=== PATIENT | male | born 1965 | race Caucasian/White ===

== ENCOUNTER 2016-07-30 16:23 | Emergency (ER) | payer BC ==
[2016-07-30 16:55] VITALS: BP 117/80
--- NOTE | 2016-08-06 21:24 | UC ---
Throat Pain/Nasal Jose HPI - HPI Summary HPI Summary: 4-5 days of worsening right side facial pain check and behind eye - History of Current Complaint Chief Complaint: UC Stated Complaint: SINUS ISSUE Hx Obtained From: Patient Onset/Duration: Gradual Onset, Still Present, Worse Since - 4-5 days Severity: Mild Pain Intensity: 2 Pain Scale Used: 0-10 Numeric Cough: None Associated Signs & Symptoms: Positive: Sinus Discomfort, Nasal Discharge - Allergies/Home Medications Allergies/Adverse Reactions: Allergies Allergy/AdvReac Type Severity Reaction Status Date / Time No Known Allergies Allergy Verified 05/09/16 15:39 PMH/Surg Hx/FS Hx/Imm Hx Previously Healthy: No Endocrine History Of: Denies: Diabetes, Thyroid Disease Cardiovascular History Of: Reports: Hypertension Denies: Cardiac Disorders Respiratory History Of: Reports: Asthma - exercise induced asthma Denies: COPD GI/ History Of: Denies: Ulcer - Surgical History Surgical History: Yes Surgery Procedure, Year, and Place: nasal polyps -2012 - Family History Known Family History: Positive: None Negative: Hypertension, Diabetes - Social History Occupation: Employed Full-time Lives: With Family Alcohol Use: Rare Substance Use Type: None Smoking Status (MU): Former Smoker - Immunization History Most Recent Influenza Vaccination: fall 2015 Review of Systems Constitutional: Negative Skin: Negative Eyes: Negative ENT: Negative Respiratory: Negative Cardiovascular: Negative Gastrointestinal: Negative Genitourinary: Negative Motor: Negative Neurovascular: Negative Musculoskeletal: Negative Neurological: Headache - right side of face Psychological: Negative All Other Systems Reviewed And Are Negative: Yes Physical Exam Triage Information Reviewed: Yes Appearance: Well-Appearing, No Pain Distress, Well-Nourished Vital Signs: Initial Vital Signs Temp 98.4 F 07/30/16 16:48 Pulse 70 07/30/16 16:48 Resp 16 07/30/16 16:48 BP 117/80 07/30/16 16:48 Pulse Ox 97 07/30/16 16:48 Vital Signs Reviewed: Yes Eye Exam: Normal Eyes: Positive: Conjunctiva Clear ENT Exam: Normal ENT: Positive: Normal ENT inspection, Hearing grossly normal, Pharynx normal, Nasal congestion, Nasal drainage. Negative: TMs normal, Tonsillar swelling, Tonsillar exudate, Trismus, Muffled/hoarse voice Dental Exam: Normal Neck exam: Normal Neck: Positive: Supple, Nontender, No Lymphadenopathy Respiratory Exam: Normal Respiratory: Positive: Chest non-tender, Lungs clear, Normal breath sounds, No respiratory distress, No accessory muscle use Cardiovascular Exam: Normal Cardiovascular: Positive: RRR, No Murmur, Pulses Normal, Brisk Capillary Refill Musculoskeletal Exam: Normal Musculoskeletal: Positive: Strength Intact, ROM Intact, No Edema Neurological Exam: Normal Neurological: Positive: Alert, Muscle Tone Normal Psychological Exam: Normal Skin Exam: Normal Throat Pain/Nasal Course/Dx - Course Assessment/Plan: augmentin, flonase, otc meds for sinus pain follow with pcp - Differential Dx/Diagnosis Differential Diagnosis/HQI/PQRI: Laryngitis, Pharyngitis, Sinusitis, URI Provider Diagnoses: Sinusitis Discharge - Discharge Plan Condition: Stable Disposition: HOME Prescriptions: Amoxicillin/Clavulanate TAB* [Augmentin TAB 875*] 875 mg PO BID #20 tab Patient Education Materials: Sinusitis (ED) Referrals: Jozef Tyler MD [Primary Care Provider] - If Needed
== END 2016-07-30 18:12 | disposition home or self-care (01) ==
LOC: UCEAST 16:23
DX: J32.9 Chronic sinusitis, unspecified (principal); Z87.891 Personal history of nicotine dependence
CPT/HCPCS: 99211; G0463

== ENCOUNTER 2016-08-31 09:43 | Emergency (ER) | payer BC ==
[2016-08-31] MEDS ORDERED: oxyCODONE/Acetamin 5/325 MG* TAB PO ONE (10:21)
--- NOTE | 2016-08-31 10:56 | RAD ---
HISTORY: Right anterior and medial knee pain COMPARISONS: None VIEWS: 2, Frontal and lateral views of the right knee FINDINGS: BONE DENSITY: Normal. BONES: There is no displaced fracture. JOINTS: There is mild patellofemoral osteoarthritis. There is no suprapatellar joint effusion or lipohemarthrosis. ALIGNMENT: There is no dislocation. SOFT TISSUES: Unremarkable. OTHER FINDINGS: None. IMPRESSION: NO ACUTE OSSEOUS INJURY. IF SYMPTOMS PERSIST, RECOMMEND REPEAT IMAGING.
[2016-08-31 12:01] VITALS: BP 132/78
--- NOTE | 2016-08-31 17:14 | ED ---
Lower Extremity - HPI Summary HPI Summary: Patient arrives to ED with CC of right knee feeling as if it was "dislocating" last evening and returning to place and now experiencing medial knee pain. Patient is able to bear weight. He states he has been taking the stairs more frequently and working out more. This has never happened before. While he didn 't see it happen, he felt it go out of place. Knee is intact now without laxity but medial knee pain is present on palpation and while bearing weight. - History of Current Complaint Chief Complaint: EDExtremityLower Stated Complaint: RT KNEE PAIN Time Seen by Provider: 08/31/16 10:07 Hx Obtained From: Patient Mechanism Of Injury: Unknown Onset of Pain: Immediate Onset/Duration: Minutes Severity Initially: Moderate Severity Currently: Moderate Pain Intensity: 2 Pain Scale Used: 0-10 Numeric Timing: Constant Location: Is Discrete @ - medial left knee Associated Signs And Symptoms: Positive: Negative Aggravating Factor(s): Standing, Ambulation, Movement, Weight Bearing, Stairs Alleviating Factor(s): Rest Able to Bear Weight: Yes - but painful to do so - Risk Factors Gout Risk Factors: Age Over 40, Male DVT Risk Factors: Negative Septic Arthritis Risk Factor: Negative - Allergies/Home Medications Allergies/Adverse Reactions: Allergies Allergy/AdvReac Type Severity Reaction Status Date / Time No Known Allergies Allergy Verified 05/09/16 15:39 PMH/Surg Hx/FS Hx/Imm Hx Previously Healthy: Yes Endocrine/Hematology History: Denies: Hx Diabetes, Hx Thyroid Disease Cardiovascular History: Reports: Hx Hypertension Respiratory History: Reports: Hx Asthma - exercise induced asthma Denies: Hx Chronic Obstructive Pulmonary Disease (COPD) GI History: Denies: Hx Ulcer - Surgical History Surgery Procedure, Year, and Place: nasal polyps -2013 Infectious Disease History: No Infectious Disease History: Denies: Hx Hepatitis, Hx Human Immunodeficiency Virus (HIV), Traveled Outside the [place] in Last 30 Days - Family History Known Family History: Positive: None Negative: Hypertension, Diabetes - Social History Occupation: Employed Full-time Lives: With Family Alcohol Use: Rare Hx Substance Use: No Substance Use Type: Reports: None Hx Tobacco Use: Yes Smoking Status (MU): Former Smoker Review of Systems Constitutional: Negative Eyes: Negative Cardiovascular: Negative Respiratory: Negative Positive: Arthralgia, Myalgia - medial left knee pain Skin: Negative Neurological: Negative Psychological: Normal All Other Systems Reviewed And Are Negative: Yes Physical Exam Triage Information Reviewed: Yes Vital Signs On Initial Exam: Initial Vitals Temp Pulse Resp BP Pulse Ox 97.5 F 62 18 136/83 100 08/31/16 09:52 08/31/16 09:52 08/31/16 09:52 08/31/16 09:52 08/31/16 09:52 Vital Signs Reviewed: Yes Appearance: Positive: Well-Appearing, Well-Nourished Skin: Positive: Warm, Skin Color Reflects Adequate Perfusion Head/Face: Positive: Normal Head/Face Inspection Neck: Positive: Supple, No Lymphadenopathy Respiratory/Lung Sounds: Positive: Clear to Auscultation, Breath Sounds Present Cardiovascular: Positive: Normal, RRR Abdomen Description: Positive: Nontender Musculoskeletal: Positive: Limited @ - flexion and extension of knee d/t pain, Pain @ - medial left knee and anterior knee over patella without discolorations. Neurological: Positive: Normal, Sensory/Motor Intact, Alert, Oriented to Person Place, Time, Speech Normal Psychiatric: Positive: Normal AVPU Assessment: Alert Diagnostics - Vital Signs Vital Signs Temp Pulse Resp BP Pulse Ox 08/31/16 11:45 72 16 132/78 08/31/16 09:52 97.5 F 62 18 136/83 100 - Laboratory Lab Statement: Any lab studies that have been ordered have been reviewed, and results considered in the medical decision making process. Lower Extremity Course/Dx - Course Course Of Treatment: Knee xray negative for acute fracture or dislocation. Patient encouraged to follow up with Dr. Fox next week. Knee immobilizer offered, but patient declined and requested adjustable knee brace from rx. Provider agreed. Ibuprofen encouraged for pain relief. Patient comfortable with crutches and is using appropriately. OK to discharge with follow up. Information given about pes anserine tendonitis/bursitis as well as disclocation. - Diagnoses Differential Diagnosis/HQI/PQRI: Positive: Bursitis, Dislocation, Sprain, Strain , Tendonitis Provider Diagnoses: Medial knee pain Discharge - Discharge Plan Condition: Stable Disposition: HOME Prescriptions: Elastic Bandages & Supports [Knee Brace/Hinged l/Xl] 1 mis XX DAILY #1 mis Patient Education Materials: Knee Dislocation (GEN), Knee Immobilizer (ED) Referrals: Deni Fox MD [Medical Doctor] - Jozef Tyler MD [Primary Care Provider] - Additional Instructions: Follow up with Dr. Fox. No acute fracture was seen. Ibuprofen 600mg three times daily as needed for pain and inflammation.
== END 2016-08-31 11:45 | disposition home or self-care (01) ==
LOC: ED 09:43
DX: M25.562 Pain in left knee (principal)
CPT/HCPCS: 99282; A9270-GY

== ENCOUNTER 2016-12-18 15:41 | Emergency (ER) | payer BC ==
[2016-12-18 16:34] VITALS: BP 135/94
--- NOTE | 2016-12-18 16:58 | UC ---
Asthma HPI - History of Current Complaint Chief Complaint: UCRespiratory Stated Complaint: ? 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 Associated Signs and Symptoms: Positive: Chest Pain - with coughing, URI, Shortness of Breath - Risk Factors Status Asthmaticus Risk Factors: Negative - Allergy/Home Medications Allergies/Adverse Reactions: Allergies Allergy/AdvReac Type Severity Reaction Status Date / Time No Known Allergies Allergy Verified 12/18/16 16:34 PMH/Surg Hx/FS Hx/Imm Hx Cardiovascular History: Hypertension Respiratory History: Asthma - Surgical History Surgical History: Yes Surgery Procedure, Year, and Place: nasal polyps -2012 - Family History Known Family History: Negative: Cardiac Disease, Hypertension, Diabetes - Social History Occupation: Employed Full-time Lives: With Family Alcohol Use: Rare Substance Use Type: None Smoking Status (MU): Former Smoker - Immunization History Most Recent Influenza Vaccination: fall 2015 Review of Systems Constitutional: Other - sweats ENT: Sore Throat, Ear Ache, Nasal Discharge, Sinus Pain/Tenderness Respiratory: Shortness Of Breath, Cough All Other Systems Reviewed And Are Negative: Yes Physical Exam Triage Information Reviewed: Yes Appearance: No Pain Distress, Well-Nourished, Ill-Appearing Vital Signs: Initial Vital Signs Temp 98.5 F 12/18/16 16:32 Pulse 73 12/18/16 16:32 Resp 14 12/18/16 16:32 BP 135/94 12/18/16 16:32 Pulse Ox 96 12/18/16 16:32 Vital Signs Reviewed: Yes Eyes: Positive: Conjunctiva Clear ENT: Positive: Pharynx normal, Nasal congestion, TMs normal Neck exam: Normal Respiratory: Positive: Wheezing - expiratory wheezing with coughing. Cardiovascular Exam: Normal Musculoskeletal Exam: Normal Neurological Exam: Normal Psychological Exam: Normal Skin Exam: Normal Asthma Course/Dx - Differential Dx/Diagnosis Differential Diagnosis/HQI/PQRI: Acute Asthma, Pneumonia, Reactive Airway Disease Provider Diagnoses: Acute URI. Acute bronchospasm. Acute sinusitis Discharge - Discharge Plan Condition: Stable Disposition: HOME Prescriptions: Albuterol HFA INHALER* [Ventolin HFA Inhaler*] 2 puff INH Q4H PRN #18 gm PRN Reason: Shortness Of Breath Amoxicillin (*) [Amoxicillin 875 MG (*)] 875 mg PO BID #20 tab predniSONE TAB* [Deltasone TAB*] 20 mg PO DAILY #18 tab Patient Education Materials: Upper Respiratory Infection (ED), Bronchospasm (ED ), Prednisone (By mouth), Sinusitis (ED), Amoxicillin (By mouth) Additional Instructions: NASAL SPRAYS AND DROPS: Afrin in the PUMP/ MIST bottle. Tilt your head down and look at the floor while doing a strong sniff with the spray. Decongestant nasal sprays and drops often give dramatic relief from congestion. They are often recommended for patients with sinus infection to assist with sinus drainage. Persons with high blood pressure should consult the doctor before using these nasal sprays. Afrin and Prasad-Synephrine are common [id number] preparations. They should not be used for more than five days, as "rebound" congestion can occur - - the congestion flares as the drug wears off. A way of dealing with this rebound congestion problem is to medicate only one nostril each time, allowing the other nostril to recover from the medicine' s effects. When you no longer need the drug during the day, spray only one nostril each night. This helps you sleep well without severe rebound congestion. Call the doctor if you develop severe headache, palpitations, or chest pain.
[2016-12-18] MEDS ORDERED: predniSONE TAB* 20 MG PO ONE (17:07)
== END 2016-12-18 17:15 | disposition home or self-care (01) ==
LOC: UCCORT 15:41
DX: J06.9 Acute upper respiratory infection, unspecified (principal); J98.01 Acute bronchospasm; J01.90 Acute sinusitis, unspecified; I10 Essential (primary) hypertension; J45.909 Unspecified asthma, uncomplicated; Z87.891 Personal history of nicotine dependence
CPT/HCPCS: 99212; G0463; J7512

== ENCOUNTER 2017-02-25 15:36 | Emergency (ER) | payer BC, OTHER ==
[2017-02-25 18:07] VITALS: BP 110/97
[2017-02-25] MEDS ORDERED: Tetan/Diph/Pertus SYR(Tdap)* 0.5 ML SYR(BOOSTRIX) use SYR IM ONE (19:01)
[2017-02-25] MEDS ORDERED: Ibuprofen TAB* 600 MG PO ONE (19:01)
--- NOTE | 2017-02-25 21:52 | ED ---
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 Minimal blood loss. Nail still intact at base. Notes to pain only on palpation which is at a 5/10. Denies radiation of pain. Denies numbness, tingling, temperature or color changes to the area. Tetanus is not UTD. - History of Current Complaint Chief Complaint: EDExtremityUpper Time Seen by Provider: 02/25/17 18:07 Stated Complaint: RT HAND FINGER LAC Hx Obtained From: Patient Onset/Duration: Started Minutes Ago Skin Exposure Onset/Duration: Minutes Ago Timing: Constant Onset Severity: Mild Current Severity: Mild Pain Intensity: 4 Pain Scale Used: 0-10 Numeric Skin Location: Hand Character: Pain Aggravating Symptom(s): Touch Alleviating Symptom(s): Nothing Associated Signs & Symptoms: Negative Related History: Trauma - Allergy/Home Medications Allergies/Adverse Reactions: Allergies Allergy/AdvReac Type Severity Reaction Status Date / Time No Known Allergies Allergy Verified 12/18/16 16:34 PMH/Surg Hx/FS Hx/Imm Hx Previously Healthy: Yes Endocrine/Hematology History: Denies: Hx Diabetes, Hx Thyroid Disease Cardiovascular History: Reports: Hx Hypertension - ON MED Denies: Hx Pacemaker/ICD Respiratory History: Reports: Hx Asthma - exercise induced asthma Denies: Hx Chronic Obstructive Pulmonary Disease (COPD) GI History: Denies: Hx Ulcer History: Denies: Hx Renal Disease Sensory History: Denies: Hx Hearing Aid Psychiatric History: Denies: Hx Panic Disorder - Surgical History Surgery Procedure, Year, and Place: nasal polyps -2013 - Immunization History Hx Pertussis Vaccination: No Immunizations Up to Date: Unable to Obtain/Confirm Infectious Disease History: No Infectious Disease History: Denies: Hx Hepatitis, Hx Human Immunodeficiency Virus (HIV), Traveled Outside the [place] in Last 30 Days - Family History Known Family History: Positive: None Negative: Cardiac Disease, Hypertension, Diabetes - Social History Occupation: Employed Full-time Lives: With Family Alcohol Use: Rare Hx Substance Use: No Substance Use Type: Reports: None Hx Tobacco Use: Yes Smoking Status (MU): Former Smoker Review of Systems Constitutional: Negative Negative: Fever, Chills, Fatigue ENT: Negative Cardiovascular: Negative Genitourinary: Negative Positive: no symptoms reported, see HPI Positive: Arthralgia Positive: Other - avulsion of the nail Neurological: Negative All Other Systems Reviewed And Are Negative: Yes Physical Exam Triage Information Reviewed: Yes Vital Signs On Initial Exam: Initial Vitals Temp Pulse Resp BP Pulse Ox 98.1 F 66 16 126/84 98 02/25/17 15:49 02/25/17 15:49 02/25/17 15:49 02/25/17 15:49 02/25/17 15:49 Vital Signs Reviewed: Yes Appearance: Positive: Well-Appearing, Well-Nourished Skin: Positive: Warm, Skin Color Reflects Adequate Perfusion, Other - avulsion of the nail of the middle finger of the right hand Head/Face: Positive: Normal Head/Face Inspection Eyes: Positive: EOMI, PATRICIA, Conjunctiva Clear Neck: Positive: Supple, No Lymphadenopathy Respiratory/Lung Sounds: Positive: Clear to Auscultation, Breath Sounds Present Cardiovascular: Positive: Normal, RRR, Pulses are Symmetrical in both Upper and Lower Extremities Musculoskeletal: Positive: Normal, Strength/ROM Intact Neurological: Positive: Speech Normal Psychiatric: Positive: Normal Diagnostics - Vital Signs Vital Signs Temp Pulse Resp BP Pulse Ox 02/25/17 18:05 98.0 F 66 19 110/97 98 02/25/17 15:49 98.1 F 66 16 126/84 98 - Laboratory Lab Statement: Any lab studies that have been ordered have been reviewed, and results considered in the medical decision making process. Course/Dx - Course Course Of Treatment: avulsion of the nail of the middle finger of the right hand. NV exam intact. Cleansed with wound on arriva. Minimal blood loss. Occlusive dressing applied. Gauze wrapped. Patient is to re-gauze the avulsion with the remaining occlusive bismuth gauze daily for 3 days. Return precautions given. Patient is OK with discharge. - Differential Diagnoses - Skin Complaint Differential Diagnoses: Other - avulsion, laceration, abrasion - Diagnoses Provider Diagnoses: Avulsion of nail Discharge - Discharge Plan Condition: Stable Disposition: HOME Patient Education Materials: Nail Avulsion (ED) Referrals: Jozef Tyler MD [Primary Care Provider] - Additional Instructions: Ibuprofen 600mg three times daily Replace the bandage daily Continue with keeping it covered with the occlusive gauze and bandage for 3 days You may use a regular bandaid after 3 days. The nail will grow back within 3-6 months
== END 2017-02-25 19:31 | disposition home or self-care (01) ==
LOC: ED 15:36
DX: S61.302A Unspecified open wound of right middle finger with damage to nail, initial encounter (principal); W45.8XXA Other foreign body or object entering through skin, initial encounter; Y92.9 Unspecified place or not applicable; I10 Essential (primary) hypertension
CPT/HCPCS: 90715; 99281; A9270-GY

== ENCOUNTER 2017-05-10 23:48 | Emergency (ER) | payer BC ==
[2017-05-11] MEDS ORDERED: methylPREDNISolone 125 MG* 2 ML VIAL IV ONE (00:24)
[2017-05-11 01:29] LABS: Red Cell Distribution Width 13 % (10.5-15)
[2017-05-11 01:31] LABS: Hematocrit 40 % (42-52); Hemoglobin 13.9 g/dl (14.0-18.0); Mean Corpuscular HGB Conc 35 g/dl (31-36); Mean Corpuscular Hemoglobin 29 pg (27-31); Mean Corpuscular Volume 83 fL (80-94); Mean Platelet Volume 7 um3 (7.4-10.4); Red Blood Count 4.81 10^6/ul (4.0-5.4); White Blood Count 10.1 10^3/ul (3.5-10.8)
[2017-05-11 01:47] LABS: Albumin 3.9 g/dL (3.2-5.2); BUN/Creatinine Ratio 14.4 (8-20); Calcium 9.7 mg/dL (8.6-10.3); EGFR African American 89.8 (>60); EGFR Non-African American 69.8 (>60); Globulin 2.8 g/dL (2-4); Total Bilirubin 0.4 mg/dL (0.2-1.0); Total Protein 6.7 g/dL (6.4-8.9)
[2017-05-11 01:56] LABS: Comments Flag Yes
[2017-05-11 02:55] LABS: Potassium 3.6 mmol/L (3.5-5.0)
--- NOTE | 2017-05-11 03:43 | ED ---
Neftali Ta Gabriel, scribed for Ankit Finch on 05/11/17 at 0022 . Respiratory - HPI Summary HPI Summary: This patient is a 51 year old M presenting to [facility] accompanied by with a chief complaint of respiratory complaint since ANIMAL [employer]INER. Pt states he was eating chocolate when his throat became irritated causing him to cough, which triggered an asthma attack. He used 4 puffs of his albuterol inhaler which alleviated the symptoms. Currently the patient reports SOB, shaking, chills, general malaise, and lightheadedness. - History of Current Complaint Stated Complaint: POSS REACTION TO MEDS Time Seen by Provider: 05/11/17 00:07 Hx Obtained From: Patient Onset/Duration: Still Present Timing: Constant Associated Signs and Symptoms: SOB, Chills - Allergy/Home Medications Allergies/Adverse Reactions: Allergies Allergy/AdvReac Type Severity Reaction Status Date / Time No Known Allergies Allergy Verified 12/18/16 16:34 PMH/Surg Hx/FS Hx/Imm Hx Previously Healthy: No Endocrine/Hematology History: Denies: Hx Diabetes, Hx Thyroid Disease Cardiovascular History: Reports: Hx Hypertension - ON MED Denies: Hx Pacemaker/ICD Respiratory History: Reports: Hx Asthma - exercise induced asthma Denies: Hx Chronic Obstructive Pulmonary Disease (COPD) GI History: Denies: Hx Ulcer History: Denies: Hx Renal Disease Sensory History: Denies: Hx Hearing Aid Psychiatric History: Denies: Hx Panic Disorder - Surgical History Surgery Procedure, Year, and Place: nasal polyps -2013 Infectious Disease History: Denies: Hx Hepatitis, Hx Human Immunodeficiency Virus (HIV), Traveled Outside the [place] in Last 30 Days - Family History Known Family History: Negative: Cardiac Disease, Hypertension, Diabetes - Social History Alcohol Use: Rare Hx Substance Use: No Substance Use Type: Reports: None Hx Tobacco Use: Yes Smoking Status (MU): Former Smoker Review of Systems Constitutional: Other - general malaise, shaking Positive: Chills Positive: Shortness Of Breath, Other - asthma attack Neurological: Other - lightheadedness All Other Systems Reviewed And Are Negative: Yes Physical Exam - Summary Physical Exam Summary: Appearance: Well appearing, no pain distress Skin: warm, dry, reflects adequate perfusion Head/face: normal Eyes: EOMI, PATRICIA ENT: normal Neck: supple, non-tender Respiratory: CTA, breath sounds present Cardiovascular: RRR, pulses symmetrical Abdomen: non-tender, soft Bowel: present Musculoskeletal: normal, strength/ROM intact Neuro: normal, sensory motor intact, A&Ox3 Triage Information Reviewed: Yes Vital Signs On Initial Exam: Initial Vitals Temp Pulse Resp BP Pulse Ox 99.1 F 87 18 121/77 97 05/11/17 00:26 05/11/17 00:26 05/11/17 00:26 05/11/17 00:26 05/11/17 00:26 Vital Signs Reviewed: Yes Diagnostics - Vital Signs Vital Signs Temp Pulse Resp BP Pulse Ox 05/11/17 00:26 99.1 F 87 18 121/77 97 - Laboratory Lab Results: Lab Results 05/11/17 05/11/17 05/11/17 Range/Units 01:15 01:15 01:15 WBC 10.1 (3.5-10.8) 10^3/ul RBC 4.81 (4.0-5.4) 10^6/ul Hgb 13.9 L (14.0-18.0) g/dl Hct 40 L (42-52) % MCV 83 (80-94) fL MCH 29 (27-31) pg MCHC 35 (31-36) g/dl RDW 13 (10.5-15) % Plt Count 250 (150-450) 10^3/ul MPV 7 L (7.4-10.4) um3 Neut % (Auto) 57.8 (38-83) % Lymph % (Auto) 23.5 L (25-47) % Divide % (Auto) 11.1 H (1-9) % Eos % (Auto) 7.3 H (0-6) % Baso % (Auto) 0.3 (0-2) % Absolute Neuts (auto) 5.8 (1.5-7.7) 10^3/ul Absolute Lymphs (auto) 2.4 (1.0-4.8) 10^3/ul Absolute Monos (auto) 1.1 H (0-0.8) 10^3/ul Absolute Eos (auto) 0.7 H (0-0.6) 10^3/ul Absolute Basos (auto) 0 (0-0.2) 10^3/ul Absolute Nucleated RBC 0.01 10^3/ul Nucleated RBC % 0.1 INR (Anticoag Therapy) (0.89-1.11) APTT (26.0-36.3) seconds Sodium 138 (133-145) mmol/L Potassium 3.6 (3.5-5.0) mmol/L Chloride 106 (101-111) mmol/L Carbon Dioxide 24 (22-32) mmol/L Anion Gap 8 (2-11) mmol/L BUN 16 (6-24) mg/dL Creatinine 1.11 (0.67-1.17) mg/dL Est GFR ( Amer) 89.8 (>60) Est GFR (Non-Af Amer) 69.8 (>60) BUN/Creatinine Ratio 14.4 (8-20) Glucose 141 H (70-100) mg/dL Lactic Acid (0.5-2.0) mmol/L Calcium 9.7 (8.6-10.3) mg/dL Total Bilirubin 0.40 (0.2-1.0) mg/dL AST 25 (13-39) U/L ALT 27 (7-52) U/L Alkaline Phosphatase 78 (34-104) U/L Troponin I 0.00 (<0.04) ng/mL B-Natriuretic Peptide 11 ( - 100) pg/mL Total Protein 6.7 (6.4-8.9) g/dL Albumin 3.9 (3.2-5.2) g/dL Globulin 2.8 (2-4) g/dL Albumin/Globulin Ratio 1.4 (1-3) 05/11/17 05/11/17 Range/Units 01:15 01:15 WBC (3.5-10.8) 10^3/ul RBC (4.0-5.4) 10^6/ul Hgb (14.0-18.0) g/dl Hct (42-52) % MCV (80-94) fL MCH (27-31) pg MCHC (31-36) g/dl RDW (10.5-15) % Plt Count (150-450) 10^3/ul MPV (7.4-10.4) um3 Neut % (Auto) (38-83) % Lymph % (Auto) (25-47) % Divide % (Auto) (1-9) % Eos % (Auto) (0-6) % Baso % (Auto) (0-2) % Absolute Neuts (auto) (1.5-7.7) 10^3/ul Absolute Lymphs (auto) (1.0-4.8) 10^3/ul Absolute Monos (auto) (0-0.8) 10^3/ul Absolute Eos (auto) (0-0.6) 10^3/ul Absolute Basos (auto) (0-0.2) 10^3/ul Absolute Nucleated RBC 10^3/ul Nucleated RBC % INR (Anticoag Therapy) 0.93 (0.89-1.11) APTT 30.8 (26.0-36.3) seconds Sodium (133-145) mmol/L Potassium (3.5-5.0) mmol/L Chloride (101-111) mmol/L Carbon Dioxide (22-32) mmol/L Anion Gap (2-11) mmol/L BUN (6-24) mg/dL Creatinine (0.67-1.17) mg/dL Est GFR ( Amer) (>60) Est GFR (Non-Af Amer) (>60) BUN/Creatinine Ratio (8-20) Glucose (70-100) mg/dL Lactic Acid 2.0 (0.5-2.0) mmol/L Calcium (8.6-10.3) mg/dL Total Bilirubin (0.2-1.0) mg/dL AST (13-39) U/L ALT (7-52) U/L Alkaline Phosphatase (34-104) U/L Troponin I (<0.04) ng/mL B-Natriuretic Peptide ( - 100) pg/mL Total Protein (6.4-8.9) g/dL Albumin (3.2-5.2) g/dL Globulin (2-4) g/dL Albumin/Globulin Ratio (1-3) Result Diagrams: 05/11/17 01:15 05/11/17 01:15 Lab Statement: Any lab studies that have been ordered have been reviewed, and results considered in the medical decision making process. - CT CT Head CT Interpretation Completed By: Radiologist - No acute intracranial pathology and chronic sinusitis. ED physician has reviewed this radiology report and agrees. - EKG 1:14 Cardiac Rate: NL EKG Rhythm: Sinus Rhythm - NSR at 73 BPM EKG Interpretation: No acute changes Disposition - Course Assessment/Plan: This patient is a 51 year old M presenting to [facility] accompanied by with a chief complaint of respiratory complaint since ANIMAL TRAINER. CT head reveals, per radiologist, No acute intracranial pathology and chronic sinusitis. CXR reveals no evidence for acute disease. Blood was drawn with no significant abnormalities. In the ED course the patient was given methylprednisolone, which improved his symptoms. Patient will be discharged with prescription for methylprednisolone and follow up from Dr. Tyler in 3 days. pt has albuteral at home and no wheeze in er. Pt diagnoses is exacerbation of asthma and chronic sinusitis. The patient is agreeable with this plan. - Differential Dx - Cardiopulmonary Differential Diagnoses - Cardiopulmonary: Acute Dyspnea, Asthma, Sinusitis, Other - anxeity reaction - Diagnoses Provider Diagnoses: Asthma exacerbation, Sinusitis, chronic Discharge - Discharge Plan Condition: Stable Disposition: HOME Prescriptions: Methylprednisolone [Medrol Dosepak 4 MG*] 0 mg PO .SEE PRECIOUS INSTRUCTION #1 tab Patient Education Materials: Methylprednisolone (By mouth), Asthma (ED), Sinusitis (ED) Referrals: Jozef Tyler MD [Primary Care Provider] - 3 Days Additional Instructions: RETURN TO THE EMERGENCY DEPARTMENT FOR CHANGING OR WORSENING SYMPTOMS. The documentation as recorded by the Neftali mabry Gabriel accurately reflects the service I personally performed and the decisions made by Josette hall Emmanuel.
[2017-05-11 04:00] VITALS: BP 123/73
--- NOTE | 2017-05-11 07:59 | RAD ---
INDICATION: Shortness of breath COMPARISON: Most recent comparison chest x-ray February 26, 2016 TECHNIQUE: Single AP portable view of the chest was obtained. FINDINGS: Image quality is compromised due to the relative inferiority of a portable chest x-ray. The heart and mediastinum exhibit normal size and contour. The lungs are grossly clear. There is no evidence of a large pleural effusion. Visualized bones are normal for the patient's age. IMPRESSION: No radiographic evidence for acute cardiopulmonary abnormality on this portable chest x-ray.
--- NOTE | 2017-05-11 08:00 | RAD ---
INDICATION: Dizziness. COMPARISON: Comparison is made with a prior MRI of the brain from October 25, 2016. TECHNIQUE: Contiguous axial sections of the brain were obtained from the skull base to the vertex without contrast. FINDINGS: The ventricles, cisterns and sulci are within normal limits. No significant focal abnormality or mass effect is seen. There is no evidence for hemorrhage. There is moderate mucosal thickening within the visualized portion of the maxillary, ethmoid and frontal sinuses which is present on the prior study most consistent with chronic sinusitis. IMPRESSION: 1. NO EVIDENCE FOR GROSS ACUTE INFARCT, MASS EFFECT OR HEMORRHAGE. 2. FINDINGS SUGGESTIVE OF CHRONIC SINUSITIS.
== END 2017-05-11 04:20 | disposition home or self-care (01) ==
LOC: ED 23:48
DX: J45.901 Unspecified asthma with (acute) exacerbation (principal); J32.9 Chronic sinusitis, unspecified; R06.02 Shortness of breath
CPT/HCPCS: 36415; 70450; 71010; 80053; 83605; 83880; 84484; 85025; 85610; 85730; 93005; 96374; 99285; J2930

== ENCOUNTER 2017-10-29 20:11 | Emergency (ER) | payer BC ==
[2017-10-29 20:58] VITALS: BP 145/72
--- NOTE | 2017-10-29 21:28 | UC ---
Throat Pain/Nasal Jose HPI - HPI Summary HPI Summary: C/O sinus pain with congestion. Mild cough. No fevers sweats or chills. - History of Current Complaint Chief Complaint: UCRespiratory Stated Complaint: SINUS COMPLAINT Hx Obtained From: Patient Onset/Duration: Gradual Onset, Lasting Weeks - 1, Worse Since - today. Severity: Mild Pain Intensity: 2 Cough: Nonproductive Associated Signs & Symptoms: Positive: Sinus Discomfort, Nasal Discharge Related History: Seasonal Allergies, Prior ENT Surgery - Allergies/Home Medications Allergies/Adverse Reactions: Allergies Allergy/AdvReac Type Severity Reaction Status Date / Time No Known Allergies Allergy Verified 10/29/17 20:59 Home Medications: Home Medications Click Dispenser Ashtma Inhaler 1 puff INH DAILY 10/29/17 [History Confirmed ] PMH/Surg Hx/FS Hx/Imm Hx Cardiovascular History: Hypertension Respiratory History: Asthma - Surgical History Surgical History: Yes Surgery Procedure, Year, and Place: nasal polyps -2012; nasal septoplasty FESS 2016 - Family History Known Family History: Negative: Cardiac Disease, Hypertension, Diabetes - Social History Occupation: Employed Full-time Lives: With Family Alcohol Use: None Substance Use Type: None Smoking Status (MU): Former Smoker - Immunization History Most Recent Influenza Vaccination: fall 2015 Review of Systems ENT: Sinus Congestion Respiratory: Cough Is Patient Immunocompromised?: No All Other Systems Reviewed And Are Negative: Yes Physical Exam Triage Information Reviewed: Yes Appearance: No Pain Distress, Well-Nourished, Ill-Appearing Vital Signs: Initial Vital Signs Temp 98.2 F 10/29/17 20:54 Pulse 66 10/29/17 20:54 Resp 18 10/29/17 20:54 BP 145/72 10/29/17 20:54 Pulse Ox 99 10/29/17 20:54 Vital Signs Reviewed: Yes Eyes: Positive: Conjunctiva Clear ENT: Positive: Pharynx normal, Nasal congestion - with allergic changes., TMs normal Neck exam: Normal Respiratory Exam: Normal Cardiovascular Exam: Normal Musculoskeletal Exam: Normal Neurological Exam: Normal Psychological Exam: Normal Skin Exam: Normal Throat Pain/Nasal Course/Dx - Differential Dx/Diagnosis Differential Diagnosis/HQI/PQRI: Otitis Media, Sinusitis, URI Provider Diagnoses: Allergic rhinitis. Sinus headache Discharge - Sign-Out/Discharge Documenting (check all that apply): Discharge/Admit/Transfer - Discharge Plan Condition: Stable Disposition: HOME Prescriptions: Amoxicillin PO (*) [Amoxicillin 875 MG (*)] 875 mg PO BID #20 tab Patient Education Materials: Allergic Rhinitis (ED), Sinusitis (ED) Referrals: Jozef Tyler MD [Primary Care Provider] - Additional Instructions: NEILMED SINUS RINSE: CHECK OUT AT [employer] Saline nasal wash helps with mucous, allergies and congestion. It can be used up to twice a day or only as needed. Use lukewarm tap water. It does not have to be sterilized or distilled water. Do 1/3 on each side and snort out of both nostrils. Repeat the process with 1/6 of the bottle on each side with snorting in between to finish the solution in the bottle Do the mometasone nasal spray 30-45 minutes after the nasal rinse and make sure to tilt the head down when doing the sprays. - Billing Disposition and Condition Condition: STABLE Disposition: HOME
== END 2017-10-29 21:44 | disposition home or self-care (01) ==
LOC: UCCORT 20:11
DX: J30.9 Allergic rhinitis, unspecified (principal); G44.89 Other headache syndrome; Z87.891 Personal history of nicotine dependence
CPT/HCPCS: 99212; G0463

== ENCOUNTER 2018-12-22 13:07 | Inpatient (IN) | payer BC ==
--- NOTE | 2018-12-22 13:17 | ED ---
Palpitations / Dysrhythmia - HPI Summary HPI Summary: This pt is a 53 y/o male, accompanied by his , presenting to [facility] referred by the [facility] for V-tach today. 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 Pt notes he has been wearing a holter monitor since 12/05/18. Today Dr. Harris's office called him to come to the ED for an evaluation for V-tach. Pt reports dizziness, lightheadedness, some SOB. Denies any chest pain or any other pain. Pt has been having a lot of dizziness while on the heart monitor but notes this is the worst and today was the only time he received a call from Dr. Harris' s office for an evaluation. Patient has an appointment with Dr. Guadarrama, interventionalist stroke neurologist , in [place] in February. Pt is followed up by Dr. Bennett for migraines. Vital signs while in room: HR 70 bpm, BP 145/100, O2 sat 99%. Home Medications Medication Instructions Recorded Confirmed Type Montelukast Sodium TAB* [Singulair 5 mg PO DAILY 06/28/15 12/22/18 History 5 mg TAB*] amLODIPine TAB* [Norvasc 5 mg TAB*] 5 mg PO DAILY 03/08/16 12/22/18 History Fluticasone Furoate ELLIPTA(NF 1 puff INH DAILY 12/22/18 12/22/18 History [Arnuity ELLIPTA (NF)] - History of Current Complaint Hx Obtained From: Patient Onset/Duration: Lasting Hours, Still Present Severity Initially: Moderate Character: Fast Aggravating: Nothing Alleviating: Nothing Associated Signs & Symptoms: Lightheadedness, Dizzy, Shortness of Breath - Allergy/Home Medications Allergies/Adverse Reactions: Allergies Allergy/AdvReac Type Severity Reaction Status Date / Time No Known Allergies Allergy Verified 12/22/18 13:18 Home Medications: Home Medications Amlodipine Besylate/Benazepril [Amlodipine-Benazepril 5-10 mg] 1 cap PO DAILY [History Confirmed 12/22/18] Cyanocobalamin INJ * [Vitamin B12 INJ *] 1,000 mcg IM MONTHLY 12/22/18 [History Confirmed 12/22/18] Fluticasone Furoate ELLIPTA(NF [Arnuity ELLIPTA (NF)] 1 puff INH DAILY 12/22/18 [History Confirmed 12/22/18] PMH/Surg Hx/FS Hx/Imm Hx Endocrine/Hematology History: Denies: Hx Diabetes, Hx Thyroid Disease Cardiovascular History: Reports: Hx Hypertension - ON MED Denies: Hx Pacemaker/ICD Respiratory History: Reports: Hx Asthma - exercise induced asthma Denies: Hx Chronic Obstructive Pulmonary Disease (COPD) GI History: Denies: Hx Ulcer History: Denies: Hx Renal Disease Sensory History: Denies: Hx Hearing Aid Psychiatric History: Denies: Hx Panic Disorder - Surgical History Surgery Procedure, Year, and Place: nasal polyps -2012; nasal septoplasty FESS 2017 Infectious Disease History: Denies: Hx Hepatitis, Hx Human Immunodeficiency Virus (HIV) - Family History Known Family History: Positive: None Negative: Cardiac Disease, Hypertension, Diabetes - Social History Alcohol Use: None Hx Substance Use: No Substance Use Type: Reports: None Hx Tobacco Use: Yes Smoking Status (MU): Former Smoker Review of Systems Negative: Fever Negative: Chest Pain Positive: Shortness Of Breath Neurological: Other - POSITIVE: dizziness, lightheadedness All Other Systems Reviewed And Are Negative: Yes Physical Exam - Summary Physical Exam Summary: Appearance: Ill-appearing, no pain distress, well-nourished Skin: Warm, color reflects adequate perfusion, diaphoretic Head: Normal Head/Face inspection, atraumatic Eyes: Conjunctiva clear ENT: Normal inspection Neck: Supple, no nodes, no JVD Respiratory: Lungs clear, normal breath sounds, no respiratory distress Cardio: RRR, No murmur, pulses normal, brisk capillary refill Abdomen: Soft, nontender Bowel sounds: Present Musculoskeletal: Strength Intact/ROM intact, no calf tenderness, no edema. Psychological: Normal Neuro: Alert, muscle tone normal, no focal deficit Triage Information Reviewed: Yes Vital Signs On Initial Exam: Initial Vitals Temp Pulse Resp BP Pulse Ox 97.8 F 75 18 144/83 100 12/22/18 13:15 12/22/18 13:15 12/22/18 13:15 12/22/18 13:15 12/22/18 13:15 Vital Signs Reviewed: Yes Diagnostics - Laboratory Result Diagrams: 12/22/18 13:42 12/22/18 13:42 Lab Statement: Any lab studies that have been ordered have been reviewed, and results considered in the medical decision making process. - Radiology Chest XR Radiology Interpretation Completed By: Radiologist Summary of Radiographic Findings: IMPRESSION: No evidence for acute disease. Dr. Penaloza has reviewed this report. - CT CTA Head/Neck CT Interpretation Completed By: Radiologist Summary of CT Findings: IMPRESSION: 1. No acute intracranial abnormality. 2. 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 3. Status post functional endoscopic sinus surgery with moderate mucosal thickening in the maxillary and ethmoid sinuses as above. Dr. Penaloza has reviewed this report. Re-Evaluation - Re-Evaluation First Eval Re-Evaluation Time: 16:32 Comment: Reviewed CTA results with patient. Second Eval Re-Evaluation Time: 16:57 Comment: Patient is aware Dr. Brown will consult. Third Eval Re-Evaluation Time: 17:00 Comment: Dr. Brown, certified teacher assistant, at bedside. Course/Dx - Course Assessment/Plan: Pt is a 53 y/o male, accompanied by his , presenting to [facility] referred by the [facility] for V-tach today. Patient was seen by Dr. Penaloza in [facility] upon arrival at 11:14. EKG done on arrival. Aspirin 324 mg was given on arrival. Pts medications reviewed this visit. Nurses notes reviewed. Allergies noted. High blood pressure noted. Test results are unremarkable. D-dimer is less than 200. Head/Neck CTA shows 1. No acute intracranial abnormality. 2. 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 3. Status post functional endoscopic sinus surgery with moderate mucosal thickening in the maxillary and ethmoid sinuses as above. Discussed pt care with Dr. Brown certified teacher assistant, who came and saw the patient in the ED. Dr. Brown recommends admission for a stress test and echo. Discussed the case with Dr. Duron hospitalist, who accepted the pt for admission. - Physician Notifications Discussed Care Of Patient With: Gregory Brown Time Discussed With Above Provider: 16:54 Instructed by Provider To: Other - Discussed pt care with Dr. Brown certified teacher assistant, who will come see the pt in the ED. [17:04] Discussed with Dr. Duron hospitalist, who accepted the pt for admission. - Critical Care Time Critical Care Time: 30-74 min Discharge - Sign-Out/Discharge Documenting (check all that apply): Patient Departure - Admit to [facility] Patient Received Moderate/Deep Sedation with Procedure: No - Discharge Plan Condition: Stable Disposition: ADMITTED TO [facility] - Attestation Statements Document Initiated by Scribe: Yes Documenting Scribe: Juana Quispe Provider For Whom Scribe is Documenting (Include Credential): Stephanie Penaloza MD Scribe Attestation: Juana Ta, scribed for Stephanie Penaloza MD on 12/22/18 at 1925.
[2018-12-22] MEDS ORDERED: Aspirin 81 mg CHEW TAB* 81 MG TAB.CHEW PO ONE (13:18)
[2018-12-22] MEDS ORDERED: NS 0.9% 1000 ML** 1,000 ML IV ONE (13:18)
--- OUTSIDE RECORDS SUMMARY | 2018-12-22 13:25 | XMS REPORT | Continuity of Care Document ---
:1965 External Reference #:[id number] Author Name Vibha medranonifer Care Team Providers Name Role Phone Bertram Dean NP Primary Care Physician Unavailable Payers Date Identification Numbers Payment Provider Subscriber Policy Number: [id number] BS [employer]ets Raiza Woods PayID: [id number] [address] [address] [place] [address] Expires: 2016 Policy Number: [id number] BS [employer]ets Shawn Harrison PayID: [id number] [address] [address] [place] [address] Expires: 2014 Policy Number: [id number] [employer] Maira Harrison PayID: [id number] [address] [address] [place] [address] Problems Active Problems Provider Date Exercise-induced asthma Jozef Tyler M.D.,FACP Onset: 07/21/2016 Vitamin D deficiency Bryce Ybarra NP Onset: 12/09/2014 Vitamin B12 deficiency (non anemic) Bryce Ybarra NP Onset: 12/09/2014 Essential hypertension Jozef Tyler M.D.,FACP Onset: 12/19/2015 Mood disorder Jozef Tyler M.D.,FACP Onset: 12/19/2015 Note: anxiety w/ anger Testicular hypofunction Jozef Tyler M.D.,FACP Onset: 12/19/2015 Impaired fasting glycaemia Jozef Tyler M.D.,FACP Onset: 07/21/2016 Current tear of medial cartilage Calvin Puente MD Onset: 09/17/2016 AND/OR meniscus of knee Chondromalacia of patella Calvin Puente MD Onset: 09/17/2016 Migraine without aura, not refractory Jozef Tyler M.D.,FACP Onset: 02/2018 Knee joint effusion Calvin Puente MD Onset: 09/14/2018 Localized, primary osteoarthritis Calvin Puente MD Onset: 10/27/2018 Migraine with typical aura Darci Bennett M.D. Onset: 11/23/2018 Dizziness and giddiness Darci Bennett M.D. Onset: 11/23/2018 Nonruptured cerebral aneurysm Darci Bennett M.D. Onset: 11/23/2018 Palpitations Darci Bennett M.D. Onset: 11/23/2018 Inactive Problems Sprain of medial collateral ligament of knee Calvin Puente MD Onset: 2016 Inactive: 10/20/2016 Family History Date Family Member(s) Observation Comments General No Current Problems Father Hip replacement Father 73 : (age 26 Years) Mother due to Suicide Siblings 3 Social History Type Date Description Comments Sex Unknown Marital Status Marital Status Significant Other Marital Status Lives With Occupation 07/21/2016 [place] [employer] [place] Tobacco Use Start: Unknown Former Cigarette Smoker End: Unknown ETOH Use 07/27/2018 Occasionally consumes alcohol Tobacco Use Start: Unknown Patient is a former 1 PPD x12 years. Quit End: Unknown smoker in 1987. Recreational Drug Use 07/21/2016 Denies Drug Use Smoking Status Reviewed: 11/23/18 Patient is a former 1 PPD x12 years. Quit smoker in 1987. Exercise Type/Frequency Plays sports 2 times a 1 time per week week Exercise Type/Frequency 10/20/2016 Aerobic Walks a few times a week Allergies, Adverse Reactions, Alerts Description No Known Drug Allergies Medications Active Medications SIG Qnty Indications Ordering Date Provider 3ML Luer Lock Safety for cyanocobalamin 10units Bertram Dean NP 10/19/2018 Syringes/3ML/23G X 1" administration. 1 mL daily for 5 days, 23G X 1" 3 ML Misc then 1 mL weekly for 4 weeks, then 1 mL monthly Cyanocobalamin 1 milliliters 25ml Bertram Dean NP 10/18/2018 (1000mcg) 1000mcg/ML Solution intramuscular once daily x 5 days; then once weekly for 4 weeks and then monthly Sumatriptan 1 spray in one 6units G43.109 Bertram Dean NP 06/07/2018 20mg/Act nostril as needed Solution migraine may repeat in 2 hours max twice in 24 hours Arnuity Ellipta 1 puff inhaled every 90units J45.30 Bertram Dean NP 2017 day 100mcg/Act Aerosol Mometasone Furoate spray 2 sprays into 17units Jozef Pulliam 06/21/2017 each nostril two Epes, 50mcg/Act Suspension times daily Puja,BUCKY Amlodipine take one capsule by 90caps I10 Bertram Dean NP 07/21/2016 Besylate/Benazepril mouth every day Hydrochloride 5-10mg Capsules Cialis Take One Tablet By 90tabs N52.9 Jozef Pulliam 04/22/2016 5mg Tablets Mouth Every Day Puja Tyler,BUCKY Montelukast Sodium take one tablet by 90tabs Nicki Larios, 03/10/2016 10mg mouth every day N.P. Tablets Ventolin HFA 2 puffs by mouth 54gm J45.998 Bertram Dean NP 02/24/2016 four times a day as 108(90Base) mcg/Act needed Aerosol History Medications Aspir-Low 1 by mouth every 30tabs G45.9 Jozef Pulliam 07/27/2018 - 81mg day Epes, 11/22/[address] Luo,BUCKY Azelastine HCL use 1 spray once 90ml Bertram Dean NP 07/27/2018 - (Nasal) daily in each 11/22/2018 0.15% nostril as needed Solution Valacyclovir HCL take two tablets by 8tabs B00.89 Jozef Pulliam 07/22/2017 - 1gm mouth every 12 Epes, 07/24/2018 Tablets hours as needed BUCKY Luo maximum daily dose=four tablets Tamiflu 1 po bid 10caps Jozef Pulliam 06/11/2017 - 75mg Capsules Epes, 06/16/2017 M.D.,FACP Medrol take as directed 1tabs Other Ordering 05/10/2017 - 4mg Tablets per dosepak Provider 05/12/2017 instructions Sumatriptan take 1 tablet by 9tabs G43.109 Jozef Pulliam 10/20/2016 - Succinate mouth every 2 hours Epes, 06/07/2018 50mg as directed for M.D.,FACP Tablets headache Vitamin B12 1 by mouth every 90tabs Jozef Pulliam 07/21/2016 - 100mcg day Epes, 06/10/2017 Tablets M.D.,FACP Azithromycin 2 every day for 1 6tabs Jozef Pulliam 07/21/2016 - 250mg day, then 1 every Epes, 07/26/2016 Tablets day M.D.,FACP Viagra 1/2-1 tab by mouth 10tabs N52.9 Jozef Pulliam 03/25/2016 - 100mg Tablets as needed Epes, 04/22/2016 M.DHarman,FACP Tramadol HCL four times a day as 60tabs M54.6 Jozef Pulliam 02/25/2016 - 50mg needed Epes, 07/21/2016 Tablets M.D.,FACP Skelaxin 1 by mouth three 20tabs M54.6 Jozef Pulliam 02/25/2016 - 800mg times a day as Epes, 07/21/2016 Tablets needed M.D.,FACP Amlodipine Besylate 1 by mouth every 90tabs I10 Jozef Pulliam 01/29/2016 - day Epes, 07/21/2016 5mg Tablets M.D.,FACP Viagra 1/2-1 by mouth as 10tabs N52.9 Jozef Pulliam 01/29/2016 - 50mg Tablets needed Epes, 03/25/2016 M.D.,FACP Albuterol Inhaler 2 puffs as needed Jozef Pulliam 12/19/2015 - Epes, 02/24/2016 M.D.,FACP Vitamin B-12 1 by mouth every 30tabs D51.9 Jozef Pulliam 12/19/2015 - 500mcg day Epes, 07/21/2016 Tablets Sub M.D.,FACP Amlodipine take 1 capsule 30caps I10 Jozef Pulliam 12/19/2015 - Besylate/Benazepril every morning Epes, 01/29/2016 Hydrochloride M.D.,FACP 2.5-10mg Capsules Vitamin D 1 cap by mouth per 8caps E55.9 Baldemar Arrieta, 08/05/2015 - (Ergocalciferol) week x 8 weeks M.D. 12/19/2015 [id number] Capsules Amlodipine Besylate 1 by mouth every 30tabs I10 Bryce Ybarra, 08/05/2015 - day AUTOMATED PROCESS OPERATOR 12/19/2015 5mg Tablets Sertraline HCL 1 tablet by mouth 30tabs F06.30 Jozef Pulliam 02/24/2015 - 25mg every day Epes, 02/25/2016 Tablets Puja,FACP Vitamin D-1000 1 tablet by mouth 60tabs E55.9 Baldemar Arrieta, 01/28/2015 - Maximum Strength twice a day, at M.D. 06/10/2017 least during winter 1000Unit Tablets time Cyanocobalamin 1.0 milliliters 25ml D51.9 Baldemar Arrieta, 12/17/2014 - intramuscular every M.D. 12/19/2015 1000mcg/ML Solution month Vitamin B-12 1 by mouth every 30tabs Bryce Ybarra, 12/10/2014 - Natural day AUTOMATED PROCESS OPERATOR 12/17/2014 500mcg Tablets Drisdol 1 tab by mouth once 8caps Bryce Ybarra, 12/10/2014 - [id number] a week x's 8 weeks AUTOMATED PROCESS OPERATOR 01/27/2015 Capsules Singulair Unknown - 12/06/2014 Budesonide 2 sprays each Unknown - 32mcg/Act nostril daily 02/23/2015 Suspension Singulair 1 by mouth every Unknown - 10mg day 03/10/2016 Tablets Clomiphene Citrate 1/2 tablet by mouth Unknown - daily 12/19/2015 50mg Tablets Flonase Allergy 1 spray each 18.200ml Jozef Pulliam - Relief nostril twice a day Epes, 06/21/2017 50mcg/Act as needed M.Heraclio,FACP Suspension Medications Administered in Office Medication SIG Qnty Indications Ordering Provider Date Injection Paul Or Calvin Puente MD 11/10/2018 Derivative, Euflexxa Per Dose Injection Injection Hyaluronan Or Calvin Puente MD 11/03/2018 Derivative, Euflexxa Per Dose Injection Injection Hyaluronan Or Calvin Puente MD 10/27/2018 Derivative, Euflexxa Per Dose Injection B-12 Injection Nurse Visit A 10/20/2018 Injection Triamcinolone (Kenalog) Calvin Puente MD 09/14/2018 Injection B-12 Injection Baldemar Arrieta M.D. 08/05/2015 Injection B-12 Injection Baldemar Arrieta M.D. 07/15/2015 Injection B-12 Injection Nurse Visit Cylinder 03/26/2015 Injection B-12 Injection Baldemar Arrieta M.D. 02/24/2015 Injection B-12 Injection Baldemar Arrieta M.D. 01/28/2015 Injection B-12 Injection Nurse Visit Cylinder 12/17/2014 Injection Immunizations CPT Code Status Date Vaccine Reaction Lot # [id number] Given 04/05/2018 Influenza Virus Vaccine, Quadrivalent, Split, Preservative Free [id number] Given 07/22/2017 Pneumonia Vaccine No immediate reaction [id number] noted. [id number] Given 05/05/2017 Influenza Virus Vaccine, Quadrivalent, Split, Preservative Free [id number] Given 07/21/2016 Tdap - [id number] Tetanus/Diptheria/Acellular Pertussis [id number] Given 03/12/2016 Influ Virus Vaccine, Quadrivalent, Split Virus, Im Fluzone not PF Vital Signs Date Vital Result Comment 11/23/2018 3:25pm Height 72 inches 6'0" Weight 222.00 lb Heart Rate 74 /min BP Systolic 122 mmHg BP Diastolic 90 mmHg BMI (Body Mass Index) 30.1 kg/m2 11/10/2018 8:13am Height 72 inches 6'0" Weight 227.00 lb Heart Rate 68 /min BP Systolic 126 mmHg BP Diastolic 68 mmHg Respiratory Rate 16 /min Body Temperature 97.7 F Pain Level 2 BMI (Body Mass Index) 30.8 kg/m2 11/03/2018 8:18am Height 72 inches 6'0" Weight 227.00 lb Heart Rate 77 /min BP Systolic 128 mmHg BP Diastolic 66 mmHg Body Temperature 97.1 F Pain Level 2 BMI (Body Mass Index) 30.8 kg/m2 10/27/2018 8:57am Height 72 inches 6'0" Weight 227.00 lb BP Systolic 120 mmHg BP Diastolic 76 mmHg Respiratory Rate 18 /min Pain Level 1 BMI (Body Mass Index) 30.8 kg/m2 10/12/2018 9:37am Height 72 inches 6'0" Weight 227.00 lb Heart Rate 64 /min BP Systolic 130 mmHg BP Diastolic 98 mmHg BMI (Body Mass Index) 30.8 kg/m2 09/22/2018 8:52am Height 72 inches 6'0" Weight 231.00 lb Heart Rate 68 /min BP Systolic 128 mmHg BP Diastolic 72 mmHg Pain Level 2 BMI (Body Mass Index) 31.3 kg/m2 09/14/2018 8:10am Height 72 inches 6'0" Weight 232.00 lb Heart Rate 70 /min BP Systolic 138 mmHg BP Diastolic 92 mmHg Respiratory Rate 16 /min Body Temperature 96.9 F Pain Level 8 BMI (Body Mass Index) 31.5 kg/m2 08/01/2018 8:29am Height 72 inches 6'0" Weight 235.00 lb Heart Rate 60 /min BP Systolic Sitting 140 mmHg BP Diastolic Sitting 84 mmHg Respiratory Rate 16 /min Body Temperature 97.8 F BMI (Body Mass Index) 31.9 kg/m2 07/27/2018 4:21pm Height 72 inches 6'0" Weight 240.00 lb Heart Rate 68 /min BP Systolic Sitting 125 mmHg large adult cuff left arm BP Diastolic Sitting 84 mmHg large adult cuff left arm Respiratory Rate 20 /min O2 % BldC Oximetry 96 % at rest on room air BMI (Body Mass Index) 32.5 kg/m2 06/07/2018 9:17am Height 72 inches 6'0" Weight 237.00 lb Heart Rate 71 /min BP Systolic 114 mmHg BP Diastolic 74 mmHg Body Temperature 97.0 F O2 % BldC Oximetry 97 % BMI (Body Mass Index) 32.1 kg/m2 07/22/2017 4:29pm Height 72 inches 6'0" Weight 239.38 lb Heart Rate 77 /min BP Systolic 120 mmHg BP Diastolic 76 mmHg Body Temperature 98.4 F O2 % BldC Oximetry 98 % BMI (Body Mass Index) 32.5 kg/m2 06/10/2017 10:10am Weight 234.00 lb Heart Rate 83 /min BP Systolic Sitting 114 mmHg BP Diastolic Sitting 70 mmHg Body Temperature 98.0 F O2 % BldC Oximetry 94 % 10/20/2016 4:12pm Weight 227.38 lb Heart Rate 53 /min BP Systolic Sitting 128 mmHg BP Diastolic Sitting 82 mmHg Body Temperature 97.0 F O2 % BldC Oximetry 98 % 09/17/2016 8:10am Height 72 inches 6'0" Weight 219.00 lb BP Systolic Sitting 118 mmHg BP Diastolic Sitting 76 mmHg Respiratory Rate 16 /min Pain Level 5 BMI (Body Mass Index) 29.7 kg/m2 09/02/2016 10:21am Height 72 inches 6'0" Weight 219.00 lb Heart Rate 78 /min BP Systolic 122 mmHg BP Diastolic 84 mmHg Respiratory Rate 16 /min Body Temperature 97.4 F Pain Level 4 BMI (Body Mass Index) 29.7 kg/m2 07/21/2016 2:38pm Height 72 inches 6'0" Weight 224.00 lb Heart Rate 72 /min BP Systolic Sitting 144 mmHg BP Diastolic Sitting 92 mmHg BP Systolic Recheck 152 mmHg BP Diastolic Recheck 95 mmHg Body Temperature 97.8 F O2 % BldC Oximetry 98 % BMI (Body Mass Index) 30.4 kg/m2 03/24/2016 4:11pm Weight 216.38 lb Heart Rate 63 /min BP Systolic Sitting 130 mmHg BP Diastolic Sitting 78 mmHg Body Temperature 97.0 F O2 % BldC Oximetry 98 % 02/25/2016 4:45pm Weight 217.00 lb Heart Rate 60 /min BP Systolic Sitting 124 mmHg BP Diastolic Sitting 62 mmHg Body Temperature 98.4 F O2 % BldC Oximetry 98 % 01/29/2016 8:42am Height 72 inches 6'0" Weight 210.12 lb Heart Rate 73 /min BP Systolic 123 mmHg BP Diastolic 79 mmHg Body Temperature 95.2 F O2 % BldC Oximetry 98 % BMI (Body Mass Index) 28.5 kg/m2 12/19/2015 3:49pm Height 72 inches 6'0" Weight 228.50 lb Heart Rate 65 /min BP Systolic Standing 138 mmHg manual BP Diastolic Standing 90 mmHg manual Body Temperature 97.4 F O2 % BldC Oximetry 98 % BMI (Body Mass Index) 31.0 kg/m2 08/05/2015 4:19pm Height 72 inches 6'0" Weight 248.50 lb Heart Rate 71 /min BP Systolic Sitting 160 mmHg BP Diastolic Sitting 100 mmHg Body Temperature 98.3 F O2 % BldC Oximetry 96 % BMI (Body Mass Index) 33.7 kg/m2 07/15/2015 3:31pm Height 72 inches 6'0" Weight 244.00 lb Heart Rate 76 /min BP Systolic Sitting 130 mmHg BP Diastolic Sitting 80 mmHg Body Temperature 97.4 F O2 % BldC Oximetry 97 % BMI (Body Mass Index) 33.1 kg/m2 02/24/2015 4:06pm Height 72 inches 6'0" Weight 239.00 lb Heart Rate 73 /min BP Systolic Sitting 160 mmHg BP Diastolic Sitting 98 mmHg Body Temperature 97.6 F O2 % BldC Oximetry 98 % BMI (Body Mass Index) 32.4 kg/m2 01/28/2015 8:32am Height 72 inches 6'0" Weight 244.00 lb Heart Rate 78 /min BP Systolic Sitting 140 mmHg BP Diastolic Sitting 72 mmHg Body Temperature 97.7 F O2 % BldC Oximetry 98 % BMI (Body Mass Index) 33.1 kg/m2 12/06/2014 8:12am Height 72 inches 6'0" Weight 252.50 lb Heart Rate 72 /min BP Systolic Sitting 142 mmHg BP Diastolic Sitting 76 mmHg Body Temperature 98.0 F O2 % BldC Oximetry 97 % BMI (Body Mass Index) 34.2 kg/m2 02/13/2014 2:55pm Height 72 inches 6'0" Weight 253.00 lb Heart Rate 76 /min BMI (Body Mass Index) 34.3 kg/m2 12/11/2013 2:33pm Height 72 inches 6'0" Weight 253.00 lb Heart Rate 72 /min BMI (Body Mass Index) 34.3 kg/m2 11/09/2013 1:56pm Height 72 inches 6'0" Weight 253.00 lb Heart Rate 70 /min BP Systolic 159 mmHg BP Diastolic 100 mmHg BMI (Body Mass Index) 34.3 kg/m2 Results Test Date Facility Test Result H/L Range Note Basic Metabolic 10/12/2018 [facility] Sodium 138 mmol/L N 135- 145 Panel [address] [place] [address] [phone] Potassium 4.2 mmol/L N 3.5-5.0 Chloride 107 mmol/L N 101-111 Co2 Carbon Dioxide 26 mmol/L N 22-32 Anion Gap 5 mmol/L N 2-11 Glucose 112 mg/dL High 70-100 Blood Urea Nitrogen 18 mg/dL N 6-24 Creatinine 1.05 mg/dL N 0.67-1.17 BUN/Creatinine Ratio 17.1 N 8-20 Calcium 9.8 mg/dL N 8.6-10.3 Egfr Non- 74.2 >60 Egfr 89.7 >60 1 Vitamin B12 And 10/12/2018 [facility] Vitamin B12 91 pg/mL Low 180-914 2 Folate Serum [address] [place] [address] [phone] Folic Acid (Folate) 13.58 ng/mL >3.99 GC/Chlamydia 08/30/2018 [facility] Chlamydia Negative Negative Amplified Rna [address] [place] [address] [phone] Neisseria gonorrhoeae (GC) Rna Negative Negative Laboratory test 08/01/2018 [facility] Testosterone 232.86 Low 240-[address] Total ng/[place] [address] [phone] Blood Urea Nitrogen BUN 16 mg/dL N 6-24 Creatinine 08/01/2018 [facility] Creatinine 1.09 mg/dL N 0.67- 1.[address] [place] [address] [phone] Egfr Non- 71.0 >60 Egfr 86.0 >60 3 Laboratory test 08/01/2018 [facility] PSA Diagnostic 1.257 N 0 -4.0 [address] ng/[place] [address] [phone] CBC Auto Diff 06/07/2018 [facility] White Blood 9.1 N 3.5- 10.[address] Count 10^3/[place] [address] [phone] Red Blood Count 5.20 10^6/uL N 4.00-5.40 Hemoglobin 14.8 g/dL N 14.0-18.0 Hematocrit 44 % N 42-52 Mean Corpuscular Volume 84 fL N 80-94 Mean Corpuscular Hemoglobin 29 pg N 27-31 Mean Corpuscular HGB Conc 34 g/dL N 31-36 Red Cell Distribution Width 14 % N 10.5-15 Platelet Count 266 10^3/uL N 150-450 Mean Platelet Volume 7.5 fL N 7.4-10.4 Abs Neutrophils 5.4 10^3/uL N 1.5-7.7 Abs Lymphocytes 2.0 10^3/uL N 1.0-4.8 Abs Monocytes 0.9 10^3/uL High 0-0.8 Abs Eosinophils 0.6 10^3/uL N 0-0.6 Abs Basophils 0.1 10^3/uL N 0-0.2 Abs Nucleated RBC 0 10^3/uL Granulocyte % 60.0 % Lymphocyte % 22.4 % Monocyte % 9.4 % Eosinophil % 7.2 % Basophil % 1.0 % Nucleated Red Blood Cells % 0.1 Comp Metabolic Panel 06/07/2018 [facility] Sodium 140 mmol/L N 135-[address] [place] [address] [phone] Potassium 4.3 mmol/L N 3.5-5.0 Chloride 106 mmol/L N 101-111 Co2 Carbon Dioxide 29 mmol/L N 22-32 Anion Gap 5 mmol/L N 2-11 Glucose 104 mg/dL High 70-100 Blood Urea Nitrogen 16 mg/dL N 6-24 Creatinine 1.12 mg/dL N 0.67-1.17 BUN/Creatinine Ratio 14.3 N 8-20 Calcium 9.6 mg/dL N 8.6-10.3 Total Protein 6.7 g/dL N 6.4-8.9 Albumin 4.1 g/dL N 3.2-5.2 Globulin 2.6 g/dL N 2-4 Albumin/Globulin Ratio 1.6 N 1-3 Total Bilirubin 0.40 mg/dL N 0.2-1.0 Alkaline Phosphatase 92 U/L N 34-104 Alt 31 U/L N 7-52 Ast 27 U/L N 13-39 Egfr Non- 68.8 >60 Egfr 83.3 >60 5 Laboratory 06/07/2018 [facility] TSH (Thyroid 1.37 N 0.34- 5.60 test finding [address] Stim Horm) mcIU/[place] [address] [phone] Laboratory 07/15/2017 [facility] Testosterone 212.50 Low 240- 950 6 test finding [address] Total ng/[place] [address] [phone] PSA Screening 1.315 ng/mL N 0-4.000 7 Lipid Profile 07/15/2017 [facility] Triglycerides 216 mg/dL 8 (Trig/Chol/HDL) [address] [place], [place] [id number] [phone] Cholesterol 198 mg/dL 9 HDL Cholesterol 29.9 mg/dL 10 LDL Cholesterol 125 mg/dL 11 Alpha 1 Antitrypsin 07/15/2017 [facility] A1a Phenotype MM bands [address] [place] [address] [phone] Alpha 1 Antitrypsin A1a 140 mg/dL 100 - 190 13 Comp Metabolic Panel 07/15/2017 [facility] Sodium 139 mmol/L N 133-[address] [place] [address] [phone] Potassium 4.3 mmol/L N 3.5-5.0 Chloride 105 mmol/L N 101-111 Co2 Carbon Dioxide 29 mmol/L N 22-32 Anion Gap 5 mmol/L N 2-11 Glucose 114 mg/dL High 70-100 Blood Urea Nitrogen 15 mg/dL N 6-24 Creatinine 1.07 mg/dL N 0.67-1.17 BUN/Creatinine Ratio 14.0 N 8-20 Calcium 9.6 mg/dL N 8.6-10.3 Total Protein 7.1 g/dL N 6.4-8.9 Albumin 4.2 g/dL N 3.2-5.2 Globulin 2.9 g/dL N 2-4 Albumin/Globulin Ratio 1.4 N 1-3 Total Bilirubin 0.60 mg/dL N 0.2-1.0 Alkaline Phosphatase 82 U/L N 34-104 Alt 24 U/L N 7-52 Ast 24 U/L N 13-39 Egfr Non- 72.9 >60 Egfr 93.7 >60 14 Rapid 06/10/2017 [facility] Influenza A POSITIVE Abnormal Negative 15 Influenza A & [address] [place] [place] [address] [phone] Influenza B Molecular NEGATIVE Negative Laboratory test 06/10/2017 [facility] Rapid SEE RESULT 16, [address] Influ[place] [address] Antigen [phone] Laboratory test 05/11/2017 [facility] Lactic Acid 2.0 mmol/L N 0.5-[address] [place] [address] [phone] Inr/Protime 05/11/2017 [facility] Inr 0.93 N 0.89- [address] 1.11 [place] [address] [phone] Laboratory test 05/11/2017 [facility] Partial 30.8 seconds N 26.0- finding [address] Thrombo Time 36.3 [place] [address] PTT [phone] B-Type Natriuretic Peptide BNP 11 pg/mL 19 CBC Auto Diff 05/11/2017 [facility] White Blood 10.1 10^3/uL N 3.5-10.[address] [place] [address] [phone] Red Blood Count 4.81 10^6/uL N 4.0-5.4 Hemoglobin 13.9 g/dL Low 14.0-18.0 Hematocrit 40 % Low 42-52 Mean Corpuscular Volume 83 fL N 80-94 Mean Corpuscular Hemoglobin 29 pg N 27-31 Mean Corpuscular HGB Conc 35 g/dL N 31-36 Red Cell Distribution Width 13 % N 10.5-15 Platelet Count 250 10^3/uL N 150-450 Mean Platelet Volume 7 um3 Low 7.4-10.4 Abs Neutrophils 5.8 10^3/uL N 1.5-7.7 Abs Lymphocytes 2.4 10^3/uL N 1.0-4.8 Abs Monocytes 1.1 10^3/uL High 0-0.8 Abs Eosinophils 0.7 10^3/uL High 0-0.6 Abs Basophils 0 10^3/uL N 0-0.2 Abs Nucleated RBC 0.01 10^3/uL Granulocyte % 57.8 % N 38-83 Lymphocyte % 23.5 % Low 25-47 Monocyte % 11.1 % High 1-9 Eosinophil % 7.3 % High 0-6 Basophil % 0.3 % N 0-2 Nucleated Red Blood Cells % 0.1 Comp Metabolic Panel 05/11/2017 [facility] Sodium 138 mmol/L N 133-[address] [place] [address] [phone] Chloride 106 mmol/L N 101-111 Co2 Carbon Dioxide 24 mmol/L N 22-32 Glucose 141 mg/dL High 70-100 Blood Urea Nitrogen 16 mg/dL N 6-24 Creatinine 1.11 mg/dL N 0.67-1.17 BUN/Creatinine Ratio 14.4 N 8-20 Calcium 9.7 mg/dL N 8.6-10.3 Total Protein 6.7 g/dL N 6.4-8.9 Albumin 3.9 g/dL N 3.2-5.2 Globulin 2.8 g/dL N 2-4 Albumin/Globulin Ratio 1.4 N 1-3 Total Bilirubin 0.40 mg/dL N 0.2-1.0 Alkaline Phosphatase 78 U/L N 34-104 Alt 27 U/L N 7-52 Egfr Non- 69.8 >60 Egfr 89.8 >60 20 Potassium 3.6 mmol/L N 3.5-5.0 Anion Gap 8 mmol/L N 2-11 Ast 25 U/L N 13-39 Laboratory test 05/11/2017 [facility] Troponin-I (TnI) 0.00 ng/ mL <0.04 finding [address] [place] [address] [phone] Basic Metabolic 07/08/2016 [facility] Sodium 139 mmol/L N 133- 145 Panel [address] [place] [address] [phone] Potassium 3.9 mmol/L N 3.5-5.0 Chloride 104 mmol/L N 101-111 Co2 Carbon Dioxide 27 mmol/L N 22-32 Anion Gap 8 mmol/L N 2-11 Glucose 97 mg/dL N 70-100 Blood Urea Nitrogen 18 mg/dL N 6-24 Creatinine 1.09 mg/dL N 0.67-1.17 BUN/Creatinine Ratio 16.5 N 8-20 Calcium 9.6 mg/dL N 8.6-10.3 Egfr Non- 71.6 N >60 Egfr 92.1 N >60 21 Laboratory 07/08/2016 [facility] Vitamin B12 306 pg/mL N 180- 914 22 test finding [address] [place] [address] [phone] HIV 1/2 AB 07/08/2016 [facility] HIV 1 2 Nonreactive N Nonreactive 23 Evaluation 101 [facility] [place] [place] [address] [phone] Laboratory 03/08/2016 [facility] Surgical SEE RESULT 24 test finding [address] [place] [address] [phone] Basic 01/29/2016 [facility] Sodium 138 mmol/L N 133-[address] [place] [address] [phone] Potassium 3.8 mmol/L N 3.5-5.0 Chloride 106 mmol/L N 101-111 Co2 Carbon Dioxide 23 mmol/L N 22-32 Anion Gap 9 mmol/L N 2-11 Glucose 115 mg/dL High 70-100 Blood Urea Nitrogen 14 mg/dL N 6-24 Creatinine 1.15 mg/dL N 0.67-1.17 BUN/Creatinine Ratio 12.2 N 8-20 Calcium 9.7 mg/dL N 8.6-10.3 Egfr Non- 67.3 N >60 Egfr 86.6 N >60 25 Testosterone 01/29/2016 [facility] Free 16.6 Abnormal 4.06- 15.6 26 Free & Total [address] Testosterone ng/[place] [address] ng/dl [phone] Testosterone 474 ng/dL N 240-950 27 Laboratory test 11/18/2015 [facility] Vitamin B12 446 pg/mL N 180-914 [address] [place] [address] [phone] Vitamin D Total 25(Oh) 31.0 ng/mL N 30-50 Basic Metabolic Panel 11/18/2015 [facility] Sodium 138 mmol/L N 133-[address] [place] [address] [phone] Potassium 4.0 mmol/L N 3.5-5.0 Chloride 104 mmol/L N 101-111 Co2 Carbon Dioxide 27 mmol/L N 22-32 Anion Gap 7 mmol/L N 2-11 Glucose 115 mg/dL High 70-100 Blood Urea Nitrogen 14 mg/dL N 6-24 Creatinine 1.10 mg/dL N 0.67-1.17 BUN/Creatinine Ratio 12.7 N 8-20 Calcium 9.4 mg/dL N 8.6-10.3 Egfr Non- 71.1 N >60 Egfr 91.5 N >60 29 Laboratory test 08/02/2015 [facility] Vitamin B12 280 pg/mL N 180-914 [address] [place], [place] [address] [phone] Vitamin D Total 25(Oh) 28.7 ng/mL Low 30-50 31 Comp Metabolic Panel 08/02/2015 [facility] Sodium 137 mmol/L N 133-[address] [place], [place] [address] [phone] Potassium 4.1 mmol/L N 3.5-5.0 Chloride 104 mmol/L N 101-111 Co2 Carbon Dioxide 28 mmol/L N 22-32 Anion Gap 5 mmol/L N 2-11 Glucose 118 mg/dL High 70-100 Blood Urea Nitrogen 17 mg/dL N 6-24 Creatinine 1.25 mg/dL High 0.67-1.17 BUN/Creatinine Ratio 13.6 N 8-20 Calcium 9.3 mg/dL N 8.6-10.3 Total Protein 7.2 g/dL N 6.4-8.9 Albumin 4.2 g/dL N 3.2-5.2 Globulin 3.0 g/dL N 2-4 Albumin/Globulin Ratio 1.4 N 1-3 Total Bilirubin 0.70 mg/dL N 0.2-1.0 Alkaline Phosphatase 56 U/L N 34-104 Alt 33 U/L N 7-52 Ast 32 U/L N 13-39 Egfr Non- 61.4 N >60 Egfr 79.0 N >60 32 Hemoglobin/Hematacrit 05/21/2015 [facility] Hemoglobin 15.6 N 14.0-18.[address] g/dL [place], [place] [address] [phone] Hematocrit 46 % N 42-52 Laboratory 05/21/2015 [facility] Testosterone 408.96 N 240- 950 test finding [address] Total ng/dL [place], [place] [id number] [phone] Laboratory 01/21/2015 [facility] Vitamin B12 173 pg/mL Low 180 -914 33, test finding [address] 34 [place], [place] [id number] [phone] Vitamin D Total 25(Oh) 34.6 ng/mL N 30-50 35 CBC Auto Diff 01/21/2015 [facility] White Blood 8.8 10^3/uL N 4.8-10.[address] [place] [address] [phone] Red Blood Count 5.26 10^6/uL N 4.0-5.4 Hemoglobin 15.3 g/dL N 14.0-18.0 Hematocrit 45 % N 42-52 Mean Corpuscular Volume 85 fL N 80-94 Mean Corpuscular Hemoglobin 29 pg N 27-31 Mean Corpuscular HGB Conc 34 g/dL N 31-36 Red Cell Distribution Width 14 % N 10.5-15 Platelet Count 267 10^3/uL N 150-450 Mean Platelet Volume 8 um3 N 7.4-10.4 Abs Neutrophils 5.0 10^3/uL N 1.5-7.7 Abs Lymphocytes 1.8 10^3/uL N 1.0-4.8 Abs Monocytes 0.8 10^3/uL N 0-0.8 Abs Eosinophils 1.0 10^3/uL High 0-0.6 Abs Basophils 0.1 10^3/uL N 0-0.2 Abs Nucleated RBC 0.01 10^3/uL N Granulocyte % 57.1 % N 38-83 Lymphocyte % 20.8 % Low 25-47 Monocyte % 9.0 % N 1-9 Eosinophil % 11.6 % High 0-6 Basophil % 1.5 % N 0-2 Nucleated Red Blood Cells % 0.1 N Lipid Profile 12/09/2014 [facility] Triglycerides 215 mg/dL N 36 (Trig/Chol/HDL) [address] [place] [address] [phone] Cholesterol 176 mg/dL N 37 HDL Cholesterol 28.0 mg/dL N 38 LDL Cholesterol 105 mg/dL N 39 Comp Metabolic Panel 12/09/2014 [facility] Sodium 138 mmol/L N 133-[address] [place] [address] [phone] Potassium 3.8 mmol/L N 3.5-5.0 Chloride 104 mmol/L N 101-111 Co2 Carbon Dioxide 27 mmol/L N 22-32 Anion Gap 7 mmol/L N 2-11 Glucose 122 mg/dL High 70-100 Blood Urea Nitrogen 13 mg/dL N 6-24 Creatinine 1.10 mg/dL N 0.67-1.17 BUN/Creatinine Ratio 11.8 N 8-20 Calcium 9.3 mg/dL N 8.6-10.3 Total Protein 7.1 g/dL N 6.4-8.9 Albumin 4.2 g/dL N 3.2-5.2 Globulin 2.9 g/dL N 2-4 Albumin/Globulin Ratio 1.4 N 1-3 Total Bilirubin 0.70 mg/dL N 0.2-1.0 Alkaline Phosphatase 91 U/L N 34-104 Alt 32 U/L N 7-52 Ast 25 U/L N 13-39 Egfr Non- 71.1 N >60 Egfr 91.5 N >60 40 Testosterone 12/09/2014 [facility] Free 7.6 Abnormal 9-30 41 Free & Total [address] Testosterone ng/[place] [address] ng/dl [phone] Testosterone 189 ng/dL Abnormal 240-950 42 Laboratory test 12/09/2014 [facility] Erythrocyte Sed 22 mm/Hr High 0-[address] Rate [place], [place] [id number] [phone] Vitamin D Total 25(Oh) 27.0 ng/mL Low 30-50 43 Vitamin B12 134 pg/mL Low 180-914 44 CBC Auto 12/09/2014 [facility] White Blood 11.5 10^3/uL High 4.8-10.[address] Count [place], [place] [id number] [phone] Red Blood Count 5.23 10^6/uL N 4.0-5.4 Hemoglobin 15.0 g/dL N 14.0-18.0 Hematocrit 44 % N 42-52 Mean Corpuscular Volume 85 fL N 80-94 Mean Corpuscular Hemoglobin 29 pg N 27-31 Mean Corpuscular HGB Conc 34 g/dL N 31-36 Red Cell Distribution Width 14 % N 10.5-15 Platelet Count 262 10^3/uL N 150-450 Mean Platelet Volume 8 um3 N 7.4-10.4 Abs Neutrophils 7.0 10^3/uL N 1.5-7.7 Abs Lymphocytes 2.4 10^3/uL N 1.0-4.8 Abs Monocytes 0.8 10^3/uL N 0-0.8 Abs Eosinophils 1.2 10^3/uL High 0-0.6 Abs Basophils 0.1 10^3/uL N 0-0.2 Abs Nucleated RBC 0 10^3/uL N Granulocyte % 61.2 % N 38-83 Lymphocyte % 20.7 % Low 25-47 Monocyte % 6.8 % N 1-9 Eosinophil % 10.2 % High 0-6 Basophil % 1.1 % N 0-2 Nucleated Red Blood Cells % 0 N Laboratory test 12/09/2014 [facility] TSH (Thyroid 2.63 ?IU/mL N 0.34-5.60 45 finding [address] [facility] Stim [place]) [place] [address] [phone] Urinalysis 12/09/2014 [facility] Urine Color Yellow N Profile [address] [place] [address] [phone] Urine Appearance Clear N Urine Specific Brent 1.021 N 1.010-1.030 Urine pH 5.0 N 5-9 Urine Urobilinogen Negative N Negative Urine Ketones Negative N Negative Urine Protein 1+(30 mg/dL) Abnormal Negative Urine Leukocytes Negative N Negative Urine Blood Negative N Negative Urine Nitrite Negative N Negative Urine Bilirubin Negative N Negative Urine Glucose Negative N Negative Urine White Blood Cell Trace(0-5/hpf) N Absent Urine Red Blood Cell 1+(3-5/hpf) Abnormal Absent Urine Bacteria Absent N Absent Laboratory test 12/09/2014 [facility] PSA Screening 1.609 ng/mL N 0-4.000 46 finding [address] [place] [address] [phone] 1 Because ethnic data is not always readily available, this report includes an eGFR for both -Americans and non- Americans. The National Kidney Disease Education Program (NKDEP) does not endorse the use of the MDRD equation for patients that are not between the ages of 18 and 70, are , have extremes of body size, muscle mass, or nutritional status, or are non- or non-. According to the National Kidney Foundation, irrespective of diagnosis, the stage of the disease is based on the level of kidney function: Stage Description GFR(mL/min/1.73 m(2)) 1 Kidney damage with normal or decreased GFR 90 2 Kidney damage with mild decrease in GFR 60-89 3 Moderate decrease in GFR 30-59 4 Severe decrease in GFR 15-29 5 Kidney failure <15 (or dialysis) 2 Normal Range 180 to 914 Indeterminate Range 145 to 180 Deficient Range <145 3 Because ethnic data is not always readily available, this report includes an eGFR for both -Americans and non- Americans. The National Kidney Disease Education Program (NKDEP) does not endorse the use of the MDRD equation for patients that are not between the ages of 18 and 70, are , have extremes of body size, muscle mass, or nutritional status, or are non- or non-. According to the National Kidney Foundation, irrespective of diagnosis, the stage of the disease is based on the level of kidney function: Stage Description GFR(mL/min/1.73 m(2)) 1 Kidney damage with normal or decreased GFR 90 2 Kidney damage with mild decrease in GFR 60-89 3 Moderate decrease in GFR 30-59 4 Severe decrease in GFR 15-29 5 Kidney failure <15 (or dialysis) 4 Serum levels of PSA measured using the [employer] DXI Hybritech immunoassay should not be interpreted as absolute evidence of the presence or absence of disease. The PSA value should be used in conjunction with other pertinent clinical diagnostic procedures. The values obtained with different assay methods or kits cannot be used interchangeably. 5 Because ethnic data is not always readily available, this report includes an eGFR for both -Americans and non- Americans. The National Kidney Disease Education Program (NKDEP) does not endorse the use of the MDRD equation for patients that are not between the ages of 18 and 70, are , have extremes of body size, muscle mass, or nutritional status, or are non- or non-. According to the National Kidney Foundation, irrespective of diagnosis, the stage of the disease is based on the level of kidney function: Stage Description GFR(mL/min/1.73 m(2)) 1 Kidney damage with normal or decreased GFR 90 2 Kidney damage with mild decrease in GFR 60-89 3 Moderate decrease in GFR 30-59 4 Severe decrease in GFR 15-29 5 Kidney failure <15 (or dialysis) 6 FASTING 10 HOUR 7 Serum levels of PSA measured using the [employer] DXI Hybritech immunoassay should not be interpreted as absolute evidence of the presence or absence of disease. The PSA value should be used in conjunction with other pertinent clinical diagnostic procedures. The values obtained with different assay methods or kits cannot be used interchangeably. 8 Desirable: <150 Borderline High: 150-199 High: 200-499 Very High: >500 9 Desirable: <200 Borderline High: 200-239 High: >239 10 Low: <40 Desirable: 40-60 High: >60 11 Desirable: <100 Near Optimal: 100-129 Borderline High: 130-159 High: 160-189 Very High: >189 12 A single M isoform is detected. In the context of a normal [id number] concentration, this is consistent with an MM phenotype. Reviewed by: Lauren Pacheco, Ph.D. 07/21/2017 3:35 PM 13 Test Performed by: [address] [address] 14 Because ethnic data is not always readily available, this report includes an eGFR for both -Americans and non- Americans. The National Kidney Disease Education Program (NKDEP) does not endorse the use of the MDRD equation for patients that are not between the ages of 18 and 70, are , have extremes of body size, muscle mass, or nutritional status, or are non- or non-. According to the National Kidney Foundation, irrespective of diagnosis, the stage of the disease is based on the level of kidney function: Stage Description GFR(mL/min/1.73 m(2)) 1 Kidney damage with normal or decreased GFR 90 2 Kidney damage with mild decrease in GFR 60-89 3 Moderate decrease in GFR 30-59 4 Severe decrease in GFR 15-29 5 Kidney failure <15 (or dialysis) 15 Systems Technologist: [id number] 17 SEE RESULT BELOW Name: HARRISONSHAWN : [address]: Franklin Oviedo MD Acct: [id number] Unit: [id number] AGE: 51 Location: [facility] Re06/10/17 SEX: M Status: REG REF SPEC: [id number] TAHMINA: 06/10/17-1039 [facility] DR: Franklin Oviedo MD REQ: [id number] RECD: 06/10/17 STATUS: COMP _ SOURCE: [facility]: ORDERED: Flu A B Request COMMENTS: [id number] Procedure Result Reported Site Rapid Influenza A B Request Final 06/10/17- 2154 ML Specimen received for Influenza A/B Molecular testing * ML - MAIN LAB ([facility]) . END OF REPORT * ML=Testing performed at Main Lab DEPARTMENT OF PATHOLOGY, [address] [place] [address] Rosalio Vargas M.D. Director [facility] # [id number] 18 [facility] Severe Sepsis and Septic Shock Management Bundle Measure requires all lactic acids initially measuring >2.0 mmol/L be repeated. 19 >100 to <200 pg/mL: likely compensated congestive heart failure (CHF) 200 to 400 pg/mL: likely moderate CHF >400 pg/mL: likely moderate to severe CHF 20 Because ethnic data is not always readily available, this report includes an eGFR for both -Americans and non- Americans. The National Kidney Disease Education Program (NKDEP) does not endorse the use of the MDRD equation for patients that are not between the ages of 18 and 70, are , have extremes of body size, muscle mass, or nutritional status, or are non- or non-. According to the National Kidney Foundation, irrespective of diagnosis, the stage of the disease is based on the level of kidney function: Stage Description GFR(mL/min/1.73 m(2)) 1 Kidney damage with normal or decreased GFR 90 2 Kidney damage with mild decrease in GFR 60-89 3 Moderate decrease in GFR 30-59 4 Severe decrease in GFR 15-29 5 Kidney failure <15 (or dialysis) 21 Because ethnic data is not always readily available, this report includes an eGFR for both -Americans and non- Americans. The National Kidney Disease Education Program (NKDEP) does not endorse the use of the MDRD equation for patients that are not between the ages of 18 and 70, are , have extremes of body size, muscle mass, or nutritional status, or are non- or non-. According to the National Kidney Foundation, irrespective of diagnosis, the stage of the disease is based on the level of kidney function: Stage Description GFR(mL/min/1.73 m(2)) 1 Kidney damage with normal or decreased GFR 90 2 Kidney damage with mild decrease in GFR 60-89 3 Moderate decrease in GFR 30-59 4 Severe decrease in GFR 15-29 5 Kidney failure <15 (or dialysis) 22 Normal Range 180 to 914 Indeterminate Range 145 to 180 Deficient Range <145 23 It is recognized that currently available assays for the detection of antibodies to HIV-1 and/or HIV-2 may not detect all infected individuals. HIV antibodies may be undetectable in some stages of the infection and in some clinical conditions. The performance of this assay has not been established for populations of infants or children. Assayed by Chemiluminescence Microparticle Immunoassay on the Siemens Advia Centaur CP. Values obtained with different methods or kits cannot be used interchangeably.The diagnostic specificity of the [employer] Centaur 1/O/2 Enhanced assay in the low risk population was 99.90% (6052/6058) with a 95% confidence interval of 99.78 to 99.96%. 24 SEE RESULT BELOW Name: SHAWN HARRISON : [address]: Damion Wright MD Acct: [id number] Unit: [id number] AGE: 50 Location: ENDO Re03/08/16 SEX: M Status: REG REF SPEC: [id number] TAHMINA: 03/08/[address]: Damion Wright MD REQ: [id number] RECD: 03/08/16 STATUS: VANNESA ARTIS DR: Jozef Tyler MD _ ORDERED: LEVEL IV/3 FINAL DIAGNOSIS 1. Colon, 70 cm, biopsy: -- Tubular adenoma. -- No high grade dysplasia or malignancy. 2. Colon, 45 cm, biopsy: -- Tubular adenoma. -- No high grade dysplasia or malignancy. 3. Colon, rectum, biopsies: -- Tubular adenoma. -- No high grade dysplasia or malignancy. CLINICAL HISTORY No history given POST-OPERATIVE DIAGNOSIS Colonoscopy to terminal ileum - polyp at 70 cm., 45 cm. and rectum biopsied; 5 years GROSS DESCRIPTION 1. The specimen is received in formalin labeled, Biopsy Colon Polyp at 70 cm, and consists of a 0.6 x 0.3 x 0.2 cm aggregate of camilo-pink irregular soft tissue fragments , which is submitted entirely in one cassette. 2. The specimen is received in formalin labeled, Biopsy Colon Polyp at 45 cm, and consists of a 0.5 x 0.3 x 0.2 cm camilo-pink polypoid soft tissue fragment, which is submitted entirely in one cassette. CONTINUED ON NEXT PAGE * ML=Testing performed at Main Lab DEPARTMENT OF PATHOLOGY, [address] [place] [address] Rosalio Vargas M.D. Director [facility] # [id number] RUN DATE: 03/09/16 [facility] LAB LIVE PAGE 2 Patient: SHAWN HARRISON [id number] (Continued) GROSS DESCRIPTION (Continued) GROSS DESCRIPTION (Continued) 3. The specimen is received in formalin labeled, Biopsy Rectal Polyps, and consists of two camilo-pink irregular to polypoid soft tissue fragments measuring 0.2 x 0.2 x 0.1 cm and 0.4 x 0.3 x 0.2 cm, which are submitted entirely in one cassette. Signed (signature on file) Rosalio Vargas MD [id number] END OF REPORT * ML=Testing performed at Main Lab DEPARTMENT OF PATHOLOGY, [address] [place] [address] Rosalio Vargas M.D. Director [facility] # [id number] 25 Because ethnic data is not always readily available, this report includes an eGFR for both -Americans and non- Americans. The National Kidney Disease Education Program (NKDEP) does not endorse the use of the MDRD equation for patients that are not between the ages of 18 and 70, are , have extremes of body size, muscle mass, or nutritional status, or are non- or non-. According to the National Kidney Foundation, irrespective of diagnosis, the stage of the disease is based on the level of kidney function: Stage Description GFR(mL/min/1.73 m(2)) 1 Kidney damage with normal or decreased GFR 90 2 Kidney damage with mild decrease in GFR 60-89 3 Moderate decrease in GFR 30-59 4 Severe decrease in GFR 15-29 5 Kidney failure <15 (or dialysis) 26 ADDITIONAL INFORMATION Testing performed by [facility]. 27 ADDITIONAL INFORMATION Testing performed by Liquid Chromatography-Tandem Mass Spectrometry (LC-MS/MS). Test Performed by: [place] [address] [employer] Worker: Seven Barr II, M.D., Ph.D. 28 Normal Range 180 to 914 Indeterminate Range 145 to 180 Deficient Range <145 29 Because ethnic data is not always readily available, this report includes an eGFR for both -Americans and non- Americans. The National Kidney Disease Education Program (NKDEP) does not endorse the use of the MDRD equation for patients that are not between the ages of 18 and 70, are , have extremes of body size, muscle mass, or nutritional status, or are non- or non-. According to the National Kidney Foundation, irrespective of diagnosis, the stage of the disease is based on the level of kidney function: Stage Description GFR(mL/min/1.73 m(2)) 1 Kidney damage with normal or decreased GFR 90 2 Kidney damage with mild decrease in GFR 60-89 3 Moderate decrease in GFR 30-59 4 Severe decrease in GFR 15-29 5 Kidney failure <15 (or dialysis) 30 Normal Range 180 to 914 Indeterminate Range 145 to 180 Deficient Range <145 31 FASTING 32 Because ethnic data is not always readily available, this report includes an eGFR for both -Americans and non- Americans. The National Kidney Disease Education Program (NKDEP) does not endorse the use of the MDRD equation for patients that are not between the ages of 18 and 70, are , have extremes of body size, muscle mass, or nutritional status, or are non- or non-. According to the National Kidney Foundation, irrespective of diagnosis, the stage of the disease is based on the level of kidney function: Stage Description GFR(mL/min/1.73 m(2)) 1 Kidney damage with normal or decreased GFR 90 2 Kidney damage with mild decrease in GFR 60-89 3 Moderate decrease in GFR 30-59 4 Severe decrease in GFR 15-29 5 Kidney failure <15 (or dialysis) 33 PT IS FASTING 34 Normal Range 180 to 914 Indeterminate Range 145 to 180 Deficient Range <145 35 PT IS FASTING 36 Desirable <150 Borderline high 150-199 High 200-499 Very High >500 37 Desirable <200 Borderline high 200-239 High >239 38 Low <40 Desirable: 40-60 High: >60 39 Desirable: <100 mg/dL Near Optimal: 100-129 mg/dL Borderline High: 130-159 mg/dL High: 160-189 mg/dL Very High: >189 mg/dL 40 Because ethnic data is not always readily available, this report includes an eGFR for both -Americans and non- Americans. The National Kidney Disease Education Program (NKDEP) does not endorse the use of the MDRD equation for patients that are not between the ages of 18 and 70, are , have extremes of body size, muscle mass, or nutritional status, or are non- or non-. According to the National Kidney Foundation, irrespective of diagnosis, the stage of the disease is based on the level of kidney function: Stage Description GFR(mL/min/1.73 m(2)) 1 Kidney damage with normal or decreased GFR 90 2 Kidney damage with mild decrease in GFR 60-89 3 Moderate decrease in GFR 30-59 4 Severe decrease in GFR 15-29 5 Kidney failure <15 (or dialysis) 41 ADDITIONAL INFORMATION Testing performed by [facility]. 42 ADDITIONAL INFORMATION Testing performed by Liquid Chromatography-Tandem Mass Spectrometry (LC-MS/MS). Test Performed by: [address] [address] [employer] Worker: Seven Barr II, M.D., Ph.D. 43 PT IS FASTING 44 Normal Range 180 to 914 Indeterminate Range 145 to 180 Deficient Range <145 45 PT IS FASTING 46 Serum levels of PSA measured using the [employer] DXI Hybritech immunoassay should not be interpreted as absolute evidence of the presence or absence of disease. The PSA value should be used in conjunction with other pertinent clinical diagnostic procedures. The values obtained with different assay methods or kits cannot be used interchangeably. Procedures Date Code Description Status 11/10/2018 Inj/Aspir Major JT Or Bursa W/ US Completed 11/03/2018 Inj/Aspir Major JT Or Bursa W/ US Completed 10/27/2018 Inj/Aspir Major JT Or Bursa W/ US Completed 10/20/2018 35211 Admin Of Inj Completed 09/14/2018 09733 Inject/Drain Joint/Bursa Major W/O US Completed 08/03/2018 35707 ECG Monitor/Recording W/Visual Superimposition Scanning Completed 08/01/2018 41351 Proctosigmoidoscopy Completed 07/27/2018 23843 EKG Tracing & Interpretation Completed 09/28/2017 18975 I&D Abscess Simple Completed 06/01/2017 61276 Removal Skin Tags Up To 15 Completed 06/01/2017 47264 Destruction Of Benign Lesions Any Method 1-14 lesions Completed 03/08/2016 [id number] Colonoscopy Completed 08/05/2015 88216 Admin Of Inj Completed 07/15/2015 26384 Admin Of Inj Completed 03/26/2015 13661 Admin Of Inj Completed 02/24/2015 61205 Admin Of Inj Completed 01/28/2015 03391 Admin Of Inj Completed 12/17/2014 23411 Admin Of Inj Completed 11/09/2013 14283 Rad Exam; Ankle Limited Completed Encounters Type Date Location Provider Dx Diagnosis Office Visit 10/12/2018 [facility] Darci Bennett, R42 Dizziness and 9:45a Services Of Zakiya cabrera G43.119 Migraine with aura, intractable, without status migrainosus Office Visit 09/22/2018 8:45a [facility] Calvin Puente M25.461 Effusion, right Services Of MD mahendra JohnsonMReina M22.41 Chondromalacia patellae, right knee S83.241A Oth tear of medial meniscus, current injury, r knee, init Office Visit 09/14/2018 8:00a [facility] Calvin Puente M25.461 Effusion, right Services Of MD mahendra Bell S83.241A Oth tear of medial meniscus, current injury, r knee, init M22.41 Chondromalacia patellae, right knee Office Visit 08/01/2018 8:30a [facility] N40.2 Nodular prostate [facility] Zakiya Figueredo M.D. 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, Ccmob w/o status migrainosus H53.8 Other visual disturbances Office Visit 02/27/2018 4:30p [facility] Dermatology Randy Watts L82.1 Other seborrheic MD keratosis Office Visit 07/22/2017 4:40p [facility] Internal Jozef Pulliam Z00.01 Encounter for Medicine - Suite Brittani Tyler general adult M.DHarman,FACP medical exam w abnormal findings I10 Essential (primary) hypertension R42 Dizziness and giddiness E29.1 Testicular hypofunction J45.30 Mild persistent asthma, uncomplicated B00.89 Other herpesviral infection Z23 Encounter for immunization Office Visit 06/10/2017 [facility] Internal Franklin J06.9 Acute upper 9:50a Medicine - Armand Oviedo M.D. respiratory R infection, unspecified Office Visit 06/01/2017 [facility] Dermatology Randy Watts MD L82.1 Other seborrheic 4:20p keratosis D22.61 Melanocytic nevi of right upper limb, including shoulder D22.5 Melanocytic nevi of trunk I83.11 Varicose veins of right lower extremity with inflammation I83.12 Varicose veins of left lower extremity with inflammation L60.3 Nail dystrophy L30.8 Other specified dermatitis B07.8 Other viral warts Z78.9 Other specified health status L53.8 Other specified erythematous conditions L91.8 Other hypertrophic disorders of the skin R23.8 Other skin changes Office Visit 10/20/2016 4:40p [facility] Internal Jozef Pulliam G43.109 Migraine with Medicine Marcello Tyler M.D.,FACP aura, not Suite R intractable, w/o status migrainosus I10 Essential (primary) hypertension Office Visit 09/17/2016 8:00a [facility] Calvin Puente, S83.411A Sprain of medial Services Of collateral C.M.A. ligament of right knee, init S83.231A Complex tear of medial mensc, current injury, r knee, init M22.41 Chondromalacia patellae, right knee S83.241A Oth tear of medial meniscus, current injury, r knee, init Office Visit 09/02/2016 10:00a [facility] Calvin Puente, M25.561 Pain in right Services Of Arabella NAGY knee S83.411A Sprain of medial collateral ligament of right knee, init Office Visit 07/21/2016 3:00p [facility] Internal Jozef Pulliam Z00.01 Encounter for Ge Tyler M.D.,[facility] general adult Suite R medical exam w abnormal findings I10 Essential (primary) hypertension N52.9 Male erectile dysfunction, unspecified D51.9 Vitamin B12 deficiency anemia, unspecified J45.21 Mild intermittent asthma with (acute) exacerbation Z23 Encounter for immunization Office Visit 03/24/2016 4:00p [facility] Internal Jozef Pulliam M54.6 Pain in Medicine - Armand Tyler M.D.,[facility] thoracic spine R I10 Essential (primary) hypertension N52.9 Male erectile dysfunction, unspecified Office Visit 02/25/2016 4:20p [facility] Internal Jozef Pulliam M54.6 Pain in thoracic Ge Tyler M.D.,[facility] spine Suite R Office Visit 01/29/2016 8:50a [facility] Internal Jozef Pulliam N52.9 Male erectile Ge Tyler M.D.,[facility] dysfunction, Suite [address] unspecified I10 Essential (primary) hypertension L91.8 Other hypertrophic disorders of the skin Office Visit 12/19/2015 3:40p [facility] Internal Jozef Pulliam I10 Essential ( primary) Ge Tyler M.D.,[facility] hypertension Suite R E29.1 Testicular hypofunction D51.9 Vitamin B12 deficiency anemia, unspecified R73.01 Impaired fasting glucose Z12.11 Encounter for screening for malignant neoplasm of colon Office Visit 08/05/2015 4:20p [facility] Internal Baldemar Arrieta, I10 Essential ( primary) Medicine - Suite M.D. hypertension R E53.9 Vitamin B deficiency, unspecified R73.01 Impaired fasting glucose E55.9 Vitamin D deficiency, unspecified E29.1 Testicular hypofunction F39 Unspecified mood [affective] disorder J45.998 Other asthma E66.09 Other obesity due to excess calories E53.8 Deficiency of other specified B group vitamins Office Visit 07/15/2015 3:40p [facility] Internal Baldemar Arrieta, F39 Unspecified mood Medicine - Suite M.D. [affective] R disorder R03.0 Elevated blood-pressure reading, w/o diagnosis of htn E29.1 Testicular hypofunction E53.9 Vitamin B deficiency, unspecified E55.9 Vitamin D deficiency, unspecified E66.09 Other obesity due to excess calories D51.9 Vitamin B12 deficiency anemia, unspecified Office Visit 02/24/2015 4:00p [facility] Internal Baldemar Arrieta, 293.83 Mood Disorder In Medicine - Suite M.D. Conditions R Classified Elsewhere 796.2 Blood Pressure Reading Elevated W/O Hypertension 281.1 Vitamin B12 Deficiency Anemia Other 268.9 Vitamin D Deficiency Unspec 257.2 Testicular Hypofunction Other 296.90 Episodic Mood Disorder NOS Office Visit 01/28/2015 8:40a [facility] Internal Baldemar Arrieta, 493.90 Asthma Unspec W/O Medicine - M.D. Status Asthmaticus Suite R 790.21 Impaired Fasting Glucose 272.4 Hyperlipidemia Other Unspec 281.1 Vitamin B12 Deficiency Anemia Other 268.9 Vitamin D Deficiency Unspec 307.81 Headache Tension 788.39 Incontinence Urinary Other 257.2 Testicular Hypofunction Other 278.00 Obesity Unspec Office Visit 12/06/2014 8:40a [facility] Internal Baldemar Arrieta, 493.90 Asthma Unspec W/O Medicine - M.D. Status Asthmaticus Suite R 780.79 Malaise And Fatigue Other 788.39 Incontinence Urinary Other 307.81 Headache Tension 278.00 Obesity Unspec Office Visit 02/13/2014 Ayan Jara 715.97 Osteoarthrosis 3:00p [facility] Unspec Genlzd [facility] Office Visit 12/11/2013 Ayan Patricia5.97 Osteoarthrosis 2:45p [facility] Unspec Genlzd Or [facility] Local[facility]le & Foot Office Visit 11/09/2013 Orthopedic Amrek 715.97 Osteoarthrosis 2:00p [facility] Unspec Maryanne [facility] Plan of Treatment Future Appointment(s):02/26/2019 4:15 pm - Darci Bennett M.D. at [facility]12/26/2018 8:15 am - Calvin Puente MD at [facility]11/23/2018 - Darci Bennett M.D.G43.109 Migraine with aura , not intractable, without status migrainoFollow up:Follow up in 12 weeksRecommendations:Call me after the Holter monitor is done Call me every 1- 2 weeks to report how you are [id number] Dizziness and ndrofyyhqF95.1 Cerebral aneurysm, jotcwuwruwqE29.2 PalpitationsNew Orders:Event Monitor, Ordered: Referral:Gordon Harris MD, Cardiovsclr Disease
[2018-12-22 14:02] LABS: ABS Basophils 0.1 10^3/ul (0-0.2); ABS Eosinophils 0.6 10^3/ul (0-0.6); ABS Neutrophils 6.7 10^3/ul (1.5-7.7); Hematocrit 41 % (42-52); Hemoglobin 14.7 g/dL (14.0-18.0); Mean Corpuscular HGB Conc 36 g/dL (31-36); Mean Corpuscular Hemoglobin 30 pg (27-31); Mean Corpuscular Volume 84 fL (80-94); Mean Platelet Volume 7.5 fL (7.4-10.4); Nucleated Red Blood Cells % 0.1; Platelet Count 256 10^3/uL (150-450); Red Blood Count 4.84 10^6 /uL (4.18-5.48); Red Cell Distribution Width 14 % (10-15); White Blood Count 10.3 10^3/uL (3.5-10.8)
[2018-12-22 14:14] LABS: CKMB ng/mL 2.1 ng/mL (0.6-6.3)
[2018-12-22 14:15] LABS: Albumin 4.2 g/dL (3.2-5.2); Albumin/Globulin Ratio 1.3 (1-3); BUN/Creatinine Ratio 13.6 (8-20); Calcium 9.5 mg/dL (8.6-10.3); EGFR African American 84.7 (>60); Globulin 3.3 g/dL (2-4); Magnesium 2.3 mg/dL (1.9-2.7); Potassium 3.7 mmol/L (3.5-5.0); Total Bilirubin 0.6 mg/dL (0.2-1.0); Total Protein 7.5 g/dL (6.4-8.9)
[2018-12-22 14:20] LABS: T4, Total 9.29 mcg/dL (6.09-12.23)
[2018-12-22 14:24] LABS: TSH (Thyroid Stimulating Horm) 1.62 mcIU/mL (0.34-5.60)
[2018-12-22 14:40] LABS: Activated Partial Thrombo Time 35.6 seconds (26.0-38.0); INR 1.06 (0.82-1.09)
[2018-12-22] MEDS ORDERED: Iohexol 350* (CONTRAST) 500 ML MDV IV ONE (15:10)
[2018-12-22] MEDS ORDERED: Potassium Chlor TAB* 20 MEQ TAB.ER PO ONE ×2 (17:04→17:36)
--- NOTE | 2018-12-22 19:54 | HP ---
CC: Bertram Dean NP; Dr. Bennett; Dr. Brown * HISTORY AND PHYSICAL: DATE OF ADMISSION: 12/22/18 PRIMARY CARE PROVIDER: Bertram Dean NP. NEUROLOGY: Dr. Bennett. CARDIOLOGY: Dr. Brown. CHIEF COMPLAINT: Dizziness. HISTORY OF PRESENT ILLNESS: Rico Alicea is a 53-year-old male with history of episodes of dizziness for the past 6 months for which he was evaluated by Dr. Bennett. 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 For that he was evaluated by a neurosurgeon in [place] and the plans are for angiogram in the near future. He thought that his symptoms of intermittent dizziness may have been due to the aneurysm, although the neurologist wanted to rule out cardiac etiology and recommended for the patient to have a monitoring tech. The patient had a monitoring tech placed on 12/05/18. Today, he had an episode of dizziness when working when he felt that he is going to pass out. He felt lightheaded and he stated that he was "walking towards the wall." He denied any chest pain or palpitations. He had no double vision or headache. Shortly thereafter, he was called by the cardiology office that 18 beats of V- tach was noted on his monitoring tech. He was directed to the ED for immediate evaluation. Here he feels better. He has no further episodes of V-tach. Dr. Brown saw him in consultation and recommended stay in the hospital with stress test on Tuesday. PAST MEDICAL HISTORY: 1. 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 2. History of episodes of dizziness as mentioned above. 3. History of palpitations. 4. History of migraine headaches. 5. History of diplopia that usually is concise with migraine headaches. 6. History of patellar chondromalacia. 7. History of impaired fasting glycemia. 8. History of exercise-induced asthma. 9. Hypertension. 10. History of left ankle fracture in 2013, treated conservatively. 11. History of nasal polyp removal in 2011 and 2013 and deviated septum surgery in 2017. 12. History of vasectomy. MEDICATIONS: Include: 1. Vitamin B12 1000 mcg intramuscularly monthly. 2. Arnuity Ellipta 1 puff every day. 3. Amlodipine/benazepril 5/10 mg daily. 4. Singulair 10 mg daily. ALLERGIES: No known drug allergies. FAMILY HISTORY: Mother committed suicide at the age of 26. Father with history of leg edema but no diagnosis of heart disease. SOCIAL HISTORY: The patient is a . Currently the second time for the past 2 years. He is working at [employer] in [place]. He has history of smoking 1 pack per day for 12 years and he quit in 1987. The patient occasionally consumes alcohol. He does not perform any significant exercise. His surrogate is his . REVIEW OF SYSTEMS: Please see history of present illness. In addition to the above mentioned, the patient stated that he has been having episodes of dizziness lasting from minutes to seconds for the past 6 months that had been getting more frequent to the point that now he feels that he has episodes of dizziness almost daily. He has episodes of diplopia that comes in with migraine headaches. He stated that since his sumatriptan was discontinued after he was diagnosed with internal carotid artery aneurysm, he has been using Tylenol when he feels are coming on and his headaches had been fairly controlled. He denies any exercise intolerance. He denies any chest pain. All the remaining 12 systems were reviewed with the patient and were otherwise negative. PHYSICAL EXAMINATION GENERAL: The patient is a very pleasant 53-year-old male who is in no acute distress. Alert, awake, and oriented x3. VITAL SIGNS: Blood pressure of 127/83, heart rate of 61 and regular, respiratory rate 16, oxygen saturation 95% on room air, temperature of 97.8. HEENT: Head: Atraumatic, normocephalic. Eyes: Pupils are equal and reactive to light and accommodation. Oropharynx clear. Mucosa moist. NECK: Supple. No JVD. No bruits bilaterally. RESPIRATORY: Clear to auscultation bilaterally. CARDIOVASCULAR: Regular rate and rhythm. No murmur. ABDOMEN: Soft, nontender. Bowel sounds present in all 4 quadrants. EXTREMITIES: There is no edema. Pulses are +2 bilaterally. There is no clubbing or cyanosis. NEUROLOGIC: On neuro evaluation, speech is clear. Cranial nerves II through XII grossly intact. Motor strength is 5/5 bilaterally. SKIN: On evaluation of the skin, no ecchymotic areas or rashes noted. DIAGNOSTIC STUDIES/LAB DATA: EKG showed normal sinus rhythm with heart rate of 73 beats per minute with QTc of [address] CT angiogram of the head and neck obtained on 12/22/18 showed 3 mm extradural aneurysm extending from the anterior genu of the right internal carotid artery, this is unchanged. Status post functional endoscopic sinus surgery of moderate mucosal thickening into the maxillary ethmoid sinuses. No acute intracranial abnormality. Portable chest x-ray, impression: "No evidence for acute disease." ASSESSMENT AND PLAN: 1. The patient has symptomatic ventricular tachycardia. He is going to be admitted to telemetry monitored bed. Dr. Brown already consulted on the patient and recommended Toprol-XL 50 daily. An echocardiogram is going to be obtained during the weekend and exercise nuclear cardiac stress test is going to be obtained on Tuesday. We will make sure that patient's potassium and magnesium is of optimal value. 2. In regards to patient's hypertension, his amlodipine is going to be continued at 5 mg daily and his benazepril since it is not on hospital's formulary, he is going to be placed on lisinopril 10 mg daily, which is also going to be continued. 3. For DVT prophylaxis, the patient is going to be placed on ambulation as he is low risk. 4. The patient's code status is full. His surrogate is his . TIME SPENT: Approximately 62 minutes were spent on admission of this patient, more than half of that time was spent [id number] with the patient during the interview and physical exam. [id number]/[facility] #: [id number] [facility]
[2018-12-22] MEDS: Metoprolol Succinate XL TAB* 50 MG PO SCH (20:23)
--- NOTE | 2018-12-22 21:36 | CONS ---
CC: Bertram Dean NP; Dr. Darci Bennett CARDIOLOGY CONSULTATION: DATE OF CONSULT: 12/22/18 REFERRING PHYSICIAN: Dr. Stephanie WOOD and Dr. Carrol GREENWOOD CC. Dr. Darci Bennett. REASON FOR CARDIOLOGY CONSULTATION: Ventricular tachycardia. HISTORY OF PRESENT ILLNESS: Mr. Alicea is a 53-year-old gentleman without known cardiac disease, who has been having several months of dizziness that have been quite disabling. He had a [employer] external rn cardiac rehab placed at the direction of his neurologist, Dr. 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 Our office was appropriately notified and the patient was referred to the emergency room. The patient denies palpitations at that time, but did feel very lightheaded and almost fell into the wall during this run of VT The patient denies chest pain. PAST MEDICAL HISTORY: Includes hypertension. He also has a 3-mm right cavernous internal carotid artery aneurysm, which he follows with the interventional neurosurgeon Dr. Guadarrama at [facility], osteoarthritis, migraines, chondromalacia, exercise-induced asthma, testicular hypofunction. OUTPATIENT MEDICATIONS: 1. Amlodipine/benazepril 5/10 one tablet once a day. 2. Montelukast. ALLERGIES TO MEDICATIONS: None. FAMILY HISTORY: Negative for cardiac disease, stroke, diabetes, cancer. SOCIAL HISTORY: He has been once and is now for 2 years. Of note, he is accompanied by his during his ER evaluation with myself. The patient works in the [employer] [place] [employer] area of our hospital. He has a GED degree. He does not smoke cigarettes or abuse alcohol. No use of illicit drugs. He drinks 1 to 2 cups of coffee per day, but per his , drinks a lot of soda with caffeine in it. He does not do formal exercise. REVIEW OF SYSTEMS: The patient denies a history of stroke. He is apparently being scheduled for an angiogram of his right internal carotid artery, sphenoid aneurysm in 02/28/19. He denies cancer. He has previously noticed a little blood in his stool, but apparently had a negative colonoscopy. He denies any recent bleeding. He denies renal calculi or cholelithiasis. He has a history of exercise-induced asthma. He denies emphysema, pneumonia, tuberculosis, sleep apnea, home oxygen use, diabetes. He has hypertension. He denies prior [place], congestive heart failure, cardiac surgery, murmurs. He has vague palpitations. He denies lupus, psoriasis, seizures, Parkinson disease, myasthenia gravis, psychiatric illnesses, thyroid disorders, liver disorders, kidney disorders, claudication symptoms, pulmonary emboli, deep venous thrombosis, peripheral arterial disease. He denies heartburn. He has noted some lower extremity edema recently. All other review of systems are negative x14 except as per this documentation. PHYSICAL EXAM: Height 6 feet, weight 222 pounds, temperature 97.8 degrees Fahrenheit, blood pressure 127/83, pulse 62, O2 saturation 95%. On general exam , he is a pleasant gentleman, in no acute distress. HEENT shows the cranium is normocephalic and atraumatic. He has moist mucosal membranes. Neck veins are not distended. There are no carotid bruits visible. Skin warm and perfused. His affect is appropriate. He appears oriented. No significant kyphoscoliosis on back exam. Lungs are clear to auscultation. No wheezes, no rales. Cardiac : S1, S2. Regular rate. No significant murmurs, rubs, or gallops. PMI is nondisplaced. Abdomen is soft, nondistended, appears benign. Extremities: Without significant edema. Pulses appear grossly intact. DIAGNOSTIC STUDIES/LAB DATA: A 12-lead EKG reviewed, 12/22/18 at 1311 which demonstrates normal sinus rhythm, no acute disease. Sodium 138, potassium 3.7, chloride 105, bicarbonate 25, BUN 15, creatinine 1.10 , magnesium 2.3. Troponin 0 followed by 0. BNP 19. TSH 1.62. INR 1.06. White blood cell count 10.3, hematocrit 41, platelet count 256. IMPRESSION: Mr. Alicea is a pleasant 53-year-old gentleman without known cardiac disease, admitted with near syncope due to 18-beat run of ventricular tachycardia on the [employer] monitor strip, which I have reviewed and which does appears monomorphic. He does have a history of hypertension. RECOMMENDATIONS: 1. This patient will be started on Toprol-XL 50 mg once a day and watched for wheezing given history of exercise-induced asthma, although the patient himself does not recall wheezing. 2. Keep potassium 4 to 5 with repletion. 3. Keep on telemetry and plan for echocardiogram and exercise Myoview nuclear rest- stress scan. If he is documented to have normal LV function and no ischemia, can place him only on the beta-avi and follow expactantly. 4. Avoid vasoconstrictive sympathomimetic agents including Imitrex and other potentially proarrhythmic agents such as caffeine. Other management as per the hospitalist medicine service. I have discussed the case with Dr. Vivar and Dr. Duron. Dear Dr. Duron and Dr. Stephanie Penaloza, many thanks for asking me to participate in the cardiovascular consultation care of Mr. Alicea. Please do not hesitate to contact me if you have any questions or concerns regarding the patient's cardiovascular consultative care. [id number]/[facility] #: [id number] [facility]
[2018-12-23 07:02] LABS: BUN/Creatinine Ratio 14.4 (8-20); Calcium 9.9 mg/dL (8.6-10.3); EGFR African American 106.8 (>60); EGFR Non-African American 88.3 (>60); Magnesium 2.2 mg/dL (1.9-2.7); Potassium 4.5 mmol/L (3.5-5.0)
[2018-12-23] MEDS: FLUTICASONE FUROATE INH SCH (07:39)
--- NOTE | 2018-12-23 07:53 | PN ---
Subjective Date of Service: 12/23/18 Interval History: Pt feels well, no arrhythmias overnight, denies dizziness Objective Active Medications: Acetaminophen (Tylenol Tab*) 650 mg PO Q4H PRN PRN Reason: FEVER/PAIN Amlodipine Besylate (Norvasc Tab*) 5 mg PO DAILY [facility] Fluticasone Furoate (Arnuity Ellipta (Nf)) 100 mcg INH DAILY [facility] Last Admin: 12/23/18 07:39 Dose: 1 puff Lisinopril (Prinivil Tab*) 10 mg PO DAILY [facility] Metoprolol Succinate (Toprol Xl Tab*) 50 mg PO DAILY [facility] Last Admin: 12/22/18 20:23 Dose: 50 mg Vital Signs - 8 hr 12/23/18 12/23/18 12/23/18 01:00 03:15 05:00 Temperature 97.6 F Pulse Rate 83 60 85 Respiratory 14 Rate Blood Pressure 111/67 (mmHg) O2 Sat by Pulse 95 Oximetry Oxygen Devices in Use Now: None Appearance: 53 yo M in nAD, AAOx3 Eyes: No Scleral Icterus, PERRLA Ears/Nose/Mouth/Throat: NL Teeth, Lips, Gums, Mucous Membranes Moist Neck: NL Appearance and Movements; NL JVP, Trachea Midline Respiratory: Symmetrical Chest Expansion and Respiratory Effort, Clear to Auscultation Cardiovascular: NL Sounds; No Murmurs; No JVD, RRR Abdominal: NL Sounds; No Tenderness; No Distention Lymphatic: No Cervical Adenopathy Extremities: No Edema, No Clubbing, Cyanosis Skin: No Rash or Ulcers, No Nodules or Sclerosis Neurological: Alert and Oriented x 3, NL Muscle Strength and Tone Result Diagrams: 12/22/18 13:42 12/23/18 06:35 Assess/Plan/Problems-Billing Assessment: 53 yo M with h/o migraine TEAGUE, HTN, 3 mm internal carotid aneurysm, with epizodes of dizziness past 6 months and V. Tach noted 12/22/18 - Patient Problems (1) Ventricular tachycardia Comment: no further episodes cont telem Caont Toprol started 12/22/[address] Brown's consult Echo planned tomorrow Stress test Tuesday (2) HTN (hypertension) Comment: cont amlodipine Benazepril substituted with [place]isinop[place] [facility] [place] (3) DVT prophylaxis Comment: low risk Status and Disposition: inpatient
[2018-12-23] MEDS: Metoprolol Succinate XL TAB* 50 MG PO SCH (08:05)
[2018-12-23] MEDS: Lisinopril TAB* 10 MG PO SCH (08:42)
[2018-12-23] MEDS: Acetaminophen TAB* 325 MG PO PRN ×2 (08:42→21:28)
[2018-12-23] MEDS: amLODIPine TAB* 5 MG PO SCH (08:42)
[2018-12-23] MEDS: Metoprolol Succinate XL TAB* 25 MG PO SCH (13:17)
[2018-12-24] MEDS: FLUTICASONE FUROATE INH SCH (07:13)
[2018-12-24] MEDS: Metoprolol Succinate XL TAB* 25 MG PO SCH (09:31)
[2018-12-24] MEDS: amLODIPine TAB* 5 MG PO SCH (09:31)
[2018-12-24] MEDS: Lisinopril TAB* 10 MG PO SCH (09:43)
[2018-12-24] MEDS: Acetaminophen TAB* 325 MG PO PRN ×2 (10:12→19:25)
--- NOTE | 2018-12-24 10:42 | PN ---
Subjective Date of Service: 12/24/18 Interval History: Pt c/o headache this am, his "usual" migraine headache. Adams an episode of 2 sec of dizziness when walking around the unit last night. Walked 3 "loops" the dizziness occurred on the 2 nd loop. No arrhythmia noted on telem Objective Active Medications: Acetaminophen (Tylenol Tab*) 650 mg PO Q4H PRN PRN Reason: FEVER/PAIN Last Admin: 12/24/18 10:12 Dose: 650 mg Amlodipine Besylate (Norvasc Tab*) 5 mg PO DAILY [facility] Last Admin: 12/24/18 09:31 Dose: 5 mg Fluticasone Furoate (Arnuity Ellipta (Nf)) 100 mcg INH DAILY [facility] Last Admin: 12/24/18 07:13 Dose: 1 puff Lisinopril (Prinivil Tab*) 10 mg PO DAILY [facility] Last Admin: 12/24/18 09:43 Dose: 10 mg Metoprolol Succinate (Toprol Xl Tab*) 25 mg PO DAILY [facility] Last Admin: 12/24/18 09:31 Dose: 25 mg Vital Signs - 8 hr 12/24/18 12/24/18 03:27 07:14 Temperature 97.6 F Pulse Rate 62 66 Respiratory 16 14 Rate Blood Pressure 112/69 (mmHg) O2 Sat by Pulse 95 96 Oximetry Oxygen Devices in Use Now: None Appearance: 53 yo m in nAD, aAOx3 Eyes: No Scleral Icterus, PERRLA Ears/Nose/Mouth/Throat: NL Teeth, Lips, Gums, Mucous Membranes Moist Neck: NL Appearance and Movements; NL JVP, Trachea Midline Respiratory: Symmetrical Chest Expansion and Respiratory Effort, Clear to Auscultation Cardiovascular: NL Sounds; No Murmurs; No JVD, RRR Abdominal: NL Sounds; No Tenderness; No Distention Lymphatic: No Cervical Adenopathy Extremities: No Edema, No Clubbing, Cyanosis Skin: No Rash or Ulcers, No Nodules or Sclerosis Neurological: Alert and Oriented x 3, NL Muscle Strength and Tone Result Diagrams: 12/22/18 13:42 12/23/18 06:35 Assess/Plan/Problems-Billing Assessment: 53 yo M with h/o migraine ADAMS, HTN, 3 mm internal carotid aneurysm, with epizodes of dizziness past 6 months and V. Tach noted 12/22/18 - Patient Problems (1) Ventricular tachycardia Comment: one "2 sec" episode of dizziness on 12/23/18-no arrythmia noted cont telem Cont Toprol started 12/22/[address] Brown's consult Echo planned today Stress test Tuesday (2) HTN (hypertension) Comment: cont amlodipine Benazepril substituted with [place]isinop[place] [facility] [place] (3) DVT prophylaxis Comment: low risk Status and Disposition: inpatient
[2018-12-24 11:41] LABS: Urine Appearance Clear; Urine Bacteria Absent (Absent); Urine Bilirubin Negative (Negative); Urine Blood 1+ (Negative); Urine Color Yellow; Urine Glucose Negative (Negative); Urine Ketones Negative (Negative); Urine Nitrite Negative (Negative); Urine Protein Negative (Negative); Urine Red Blood Cell Trace(0-2/hpf) (Absent); Urine Specific Gravity 1.015 (1.010-1.030); Urine Urobilinogen Negative (Negative); Urine White Blood Cell Trace(0-5/hpf) (Absent)
--- NOTE | 2018-12-24 11:49 | ECHO ---
*[facility]* [place] [address] Fax #: [phone] Transthoracic Echocardiogram Patient: Rico Alicea : 1965 Study Date: 12/24/2018 Age: 53 Gender: M HR: 61 bpm Height: 72 in /182.9 cm BSA: 2.23 m^2 Weight: 221.5 lb /100.7 kg BMI: 30.1 kg/m^2 *Psychiatric Rn: Gwendolyn Olsen [facility] *Referring Physician: * Carrol Duron *Reading Physician: * Gregory Brown MD Indications: Abnormal EKG. History: Carotid aneurysm, former smoker. Conclusions Summary: 1. Left ventricle: The cavity size is normal. Wall thickness is mildly increased. Systolic function is normal. The estimated ejection fraction is 55-60%. Wall motion is normal; there are no regional wall motion abnormalities. 2. Normal cardiac chamber sizes. 3. Functionally benign heart valves. 4. Aortic root: The aortic root is mildly dilated. 5. Aortic arch: The aortic arch is mildly dilated. 6. There is no prior echocardiogram available to compare with at this time. Study data: Transthoracic echocardiogram. Procedure: Transthoracic echocardiography was performed. Image quality was good. Complete 2D, spectral Doppler, and color flow Doppler. Location: Bedside. Patient status: Inpatient. Patient room number: 453. Rhythm: Normal sinus rhythm. Findings Left ventricle: The cavity size is normal. Wall thickness is mildly increased. Systolic function is normal. The estimated ejection fraction is 55-60%. Wall motion is normal; there are no regional wall motion abnormalities. There is no consistent Doppler evidence of clinically significant diastolic dysfunction. Right ventricle: The cavity size is normal. Systolic function is normal. Left atrium: The atrium is normal in size. Right atrium: The atrium is normal in size. Mitral valve: The leaflets are normal thickness. There is trivial regurgitation. Aortic valve: The valve is trileaflet. There is no evidence of stenosis. There is trivial regurgitation. Tricuspid valve: The leaflets are normal thickness. There is no significant regurgitation. Pulmonic valve: The leaflets are normal thickness. There is no evidence of stenosis. There is trivial regurgitation. Aorta: Aortic root: The aortic root is mildly dilated. Ascending aorta: The ascending aorta is appears normal. Aortic arch: The aortic arch is mildly dilated. Pericardium: There is no significant pericardial effusion. Pulmonary arteries: The main pulmonary artery is normal-sized. Systolic pressure can not be accurately estimated. Systemic veins: Inferior vena cava: The vessel is normal in size. The respirophasic diameter changes are blunted (< 50%). Measurements Left ventricle Value Ref Aortic valve Value Ref EDIL, LAX 4.9 cm 4.2 - 5.8 Satish diam, ED 2.3 cm ---- ESD, LAX 3.4 cm 2.5 - 4.0 Peak v, S 1.22 m/sec ---- FS, LAX 31 % 25 - 43 VTI, S 27.5 cm ---- PW, ED, LAX (H) 1.1 cm 0.6 - 1.0 Mean grad, S 3.0 mm Hg ---- EF 58 % 52 - 72 Peak grad, S 6.0 mm Hg ---- E', lat satish, TDI 10.1 cm/sec >=10.0 E/e', lat satish, 6 Mitral valve Value Ref TDI Peak E 0.59 m/sec ---- E', med satish, TDI 7.5 cm/sec >=7.0 Peak A 0.54 m/sec ---- E/e', med satish, 8 Decel time 201 ms ---- TDI Peak E/A ratio 1.1 ---- E', avg, TDI 8.8 cm/sec E/e', avg, TDI 7 <=14 Pulmonic valve Value Ref Peak v, S 0.88 m/sec ---- LVOT Value Ref Peak grad, S 3.0 mm Hg ---- Peak pedro, S 1.17 m/sec Peak grad, S 5 mm Hg Aortic root Value Ref Mean grad, S 3 mm Hg Root diam 3.7 cm <4.3 Ventricular septum Value Ref Ascending aorta Value Ref IVS, ED (H) 1.3 cm 0.6 - 1.0 AAo AP diam, S 3.1 cm ---- Right ventricle Value Ref Aortic arch Value Ref EDIL, LAX 3.2 cm Arch diam 3.5 cm ---- EDIL minor ax, A4C 3.2 cm 1.9 - 3.5 mid Decending aorta Value Ref Shorty peak pedro 0.74 m/sec ---- Left atrium Value Ref AP dim, ES (H) 4.70 cm 3.00 - Inferior vena cava Value Ref 4.00 Diam 1.7 cm ---- ML dim, A4C 4.3 cm SI dim, A4C 5.4 cm Vol/bsa, ES, A/L 32 ml/m^2 16 - 34 Right atrium Value Ref SI dim, ES 4.8 cm 3.4 - 5.3 ML dim, ES, A4C 3.8 cm 2.6 - 4.4 Estimated RAP 8 mm Hg Legend: (L) and (H) nelly values outside specified reference range. Prepared and electronically signed by Gregory Brown MD 12/24/2018 11:48
[2018-12-25] MEDS: Acetaminophen TAB* 325 MG PO PRN (03:31)
[2018-12-25 06:47] LABS: ABS Basophils 0.1 10^3/ul (0-0.2); ABS Lymphocytes 2.4 10^3/ul (1.0-4.8); ABS Monocytes 1.1 10^3/ul (0-0.8); ABS Neutrophils 8.5 10^3/ul (1.5-7.7); Eosinophil % 7.5 %; Hematocrit 45 % (42-52); Hemoglobin 15.7 g/dL (14.0-18.0); Lymphocyte % 18.1 %; Mean Corpuscular HGB Conc 35 g/dL (31-36); Mean Corpuscular Hemoglobin 30 pg (27-31); Mean Corpuscular Volume 85 fL (80-94); Mean Platelet Volume 7.4 fL (7.4-10.4); Nucleated Red Blood Cells % 0.1; Platelet Count 268 10^3/uL (150-450); Red Blood Count 5.28 10^6 /uL (4.18-5.48); Red Cell Distribution Width 14 % (10-15); White Blood Count 13.1 10^3/uL (3.5-10.8)
[2018-12-25 07:11] LABS: Calcium 9.6 mg/dL (8.6-10.3); Potassium 4.1 mmol/L (3.5-5.0)
[2018-12-25 07:16] LABS: BUN/Creatinine Ratio 15.1 (8-20); EGFR African American 88.4 (>60); EGFR Non-African American 73.1 (>60)
[2018-12-25] MEDS: FLUTICASONE FUROATE INH SCH ×2 (08:16→11:26)
[2018-12-25] MEDS: Lisinopril TAB* 10 MG PO SCH (09:18)
[2018-12-25] MEDS: Metoprolol Succinate XL TAB* 25 MG PO SCH (09:18)
[2018-12-25] MEDS: amLODIPine TAB* 5 MG PO SCH (09:18)
[2018-12-25 13:21] VITALS: BP 117/86
--- NOTE | 2018-12-26 20:08 | DS ---
CC: Bertram Dean NP; Dr. Darci Bennett; Dr. Brown * DISCHARGE SUMMARY: DATE OF ADMISSION: 12/22/18 DATE OF DISCHARGE: 12/25/18 PRIMARY CARE PROVIDER: Bertram Dean NP. NEUROLOGIST: Dr. Darci Bennett. SOFTWARE TEST TECHNICIAN: Dr. Brown. MY ATTENDING: Dr. Marek Manzano.* (DICTATED BY ARIEL HODGES NP HOSPITAL COURSE: Please refer to admitting H and P on 12/22/18, but in short, Mr. Alicea is a 53-year-old male patient with a past medical history significant for internal carotid aneurysm, history of migraine headaches, chondromalacia, exercise- induced asthma, hypertension, and remote history of palpitations. The patient presented to the emergency department after being referred by his neurologist. The patient had a Holter monitor that was placed at the request of his neurologist in anticipation of having an angiogram in the near future for his aneurysm. The patient was being optimized for this procedure and he had been having some dizziness. The plan was for him to have the Holter monitor placed. During that time, he was called by the cardiology office that placed it, and he was noted to have an 18-beat run of V-tach and was referred to the emergency department. Dr. Brown evaluated the patient in the ED and recommended that the patient stay for a cardiac stress test on the following Tuesday. The patient was admitted and kept on telemetry. He was started on low-dose beta-avi at the recommendation of Cardiology and also had an echocardiogram ordered. The echocardiogram of his heart did not show any acute pathology. His ejection fraction was 55% to 60%. He had functionally benign heart valves with intact LV function and no further changes. His cardiac stress test, initially there was some discrepancy over the patient taking the beta-avi before the stress test; however, the patient did ultimately receive his beta-avi medication and underwent his test. The nuclear portion was read as low risk and the EKG portion that was interpreted by Dr. Rao was also interpreted as low risk. The patient tolerated the beta- avi without any issues. The patient's biggest concern on the day of discharge after receiving the results of his low-risk stress test was the management of his migraines and also further optimization for his aneurysm. 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 The patient was essentially asymptomatic. REVIEW OF SYSTEMS: He denied any fever, fatigue, chills, dizziness. No chest pain, no shortness of breath. No nausea, no vomiting. No arthralgias or myalgias and no further constitutional complaints. PHYSICAL EXAMINATION: Reveals a well-appearing gentleman, in no acute distress. Vital signs are, blood pressure 117/76, heart rate 66, respiratory rate 20, O2 saturation 96% on room air with a temperature of 97.9. HEENT: The patient is atraumatic, normocephalic. PERRLA. Nonicteric sclerae. Oral mucosa moist. Tongue midline. Neck: Supple, nontender. No JVD noted. No carotid bruits auscultated. Cardiovascular: S1, S2 present. No murmurs, gallops, or rubs noted. Rate and rhythm are regular. Lungs are clear bilaterally to auscultation with no wheezing, rhonchi, or rales. Abdomen is soft, nontender, nondistended. Positive bowel sounds in all 4 quadrants. No organomegaly noted. : Deferred. Musculoskeletal: No clubbing, no cyanosis, no edema. +2 distal pulses palpable. Full range of motion. Steady gait. Neurologic: Grossly intact with no focal deficits. Psychiatric: Cooperative and appropriate. DIAGNOSTIC STUDIES/LAB DATA: WBCs 13.1, RBCs 5.28, hemoglobin 15.7, hematocrit 45, platelets 268. Sodium 137, potassium 4.1, chloride 105, CO2 of 27, BUN 16, creatinine 1.06, glucose 113, calcium 9.6, magnesium 2.2. Troponins were negative at 0.00 x3. BNP 19. TSH 1.62 and free T4 9.29. Imaging: Chest x-ray showed no acute cardiopulmonary process. CTA of the head: As noted above, the 3 mm extradural aneurysm of the anterior right internal carotid artery, which is unchanged. Nuclear portion of the stress test images are low risk based on the nuclear assessment with normal left ventricular wall motion and ejection fraction. An echocardiogram also was noted above with EF of 55% to 60%, functionally benign heart valves and normal cardiac chamber sizes. DISCHARGE DIAGNOSES: 1. Ventricular tachycardia, self-limiting. 2. History of hypertension. 3. History of migraines. 4. Internal carotid aneurysm. DISCHARGE MEDICATIONS: Include: 1. Vitamin B12 1000 mcg intramuscular monthly. 2. Amlodipine/benazepril 5/10 mg 1 cap p.o. daily. 3. Fluticasone inhaled 1 puff daily. 4. Singulair 5 mg p.o. daily. New medication: Metoprolol succinate XL 25 mg p.o. daily. No other changes to his medications other than the metoprolol. DISCHARGE DIET: Heart-healthy as tolerated. ACTIVITY: Progress activity as tolerated. FOLLOWUPS: The patient was instructed to follow up with Dr. Darci Bennett of Neurology in the next 1 to 2 weeks; Dr. Gregory Brown of Cardiology in the next week; Bertram Dean NP, primary care, in the next 1 to weeks. DISPOSITION: The patient was discharged to home in the care of his in stable condition. All questions were answered. The patient and his both stated their understanding of their discharge diagnoses, new medication, and followups. TIME SPENT: 40 minutes on discharge planning and education. ARIEL HODGES NP [id number]/[facility] #: [id number] LINDA
== END 2018-12-25 17:00 | disposition home or self-care (01) | DRG 201 ==
LOC: ED 13:07 → MEDTELE 17:30
PROVIDERS: ADMIT Internal Medicine; ATTEND Internal Medicine
DX: I47.2 Ventricular tachycardia (principal); I10 Essential (primary) hypertension; G43.909 Migraine, unspecified, not intractable, without status migrainosus; I67.1 Cerebral aneurysm, nonruptured; J45.990 Exercise induced bronchospasm; R73.01 Impaired fasting glucose; M22.40 Chondromalacia patellae, unspecified knee; M19.90 Unspecified osteoarthritis, unspecified site; E29.1 Testicular hypofunction; Z79.899 Other long term (current) drug therapy; Z87.891 Personal history of nicotine dependence
CPT/HCPCS: 36415; 70496; 70498; 71045; 78452; 80048; 80053; 81003; 81015; 82550; 82553; 83605; 83735; 83880; 84436; 84443; 84484; 85025; 85379; 85610; 85730; 87086; 93005; 93017; 93306; 94640; 99284; A9270-GY; A9502; Q9967

== ENCOUNTER 2022-06-03 16:10 | Observation (INO) ==
[2022-06-03 16:30] LABS: ABS Basophils 0.2 10^3/ul (0-0.2); ABS Eosinophils 0.7 10^3/ul (0-0.6); ABS Lymphocytes 2.1 10^3/ul (1.0-4.8); ABS Monocytes 1.3 10^3/ul (0-0.8); ABS Neutrophils 7.8 10^3/ul (1.5-7.7); Eosinophil % 5.5 %; Hematocrit 41 % (42-52); Hemoglobin 13.6 g/dL (14.0-18.0); Lymphocyte % 17.7 %; Mean Corpuscular HGB Conc 33 g/dL (31-36); Mean Corpuscular Hemoglobin 27 pg (27-31); Mean Corpuscular Volume 80 fL (80-94); Platelet Count 265 10^3/uL (150-450); Red Blood Count 5.12 10^6 /uL (4.18-5.48); Red Cell Distribution Width 16 % (10-15); White Blood Count 12.1 10^3/uL (3.5-10.8)
[2022-06-03 16:41] LABS: INR 1.24 (0.88-1.18)
[2022-06-03 16:52] LABS: High Sens Troponin Baseline < 3 pg/mL (<20)
[2022-06-03 17:15] LABS: ALT 45 U/L (7-52); AST 23 U/L (13-39); Albumin/Globulin Ratio 1.3 (1-3); Alkaline Phosphatase 99 U/L (35-149); Anion Gap 5 mmol/L (2-11); Blood Urea Nitrogen 18 mg/dL (6-24); CO2 Carbon Dioxide 28 mmol/L (22-32); Calcium 9.2 mg/dL (8.6-10.3); Chloride 105 mmol/L (101-111); Glucose 83 mg/dL (70-100); Potassium 3.8 mmol/L (3.5-5.0); Sodium 138 mmol/L (135-145); eGFR CKD-EPI 77.1 (>60)
[2022-06-03 18:00] LABS: High Sensitivity Troponin 1 Hr < 3 pg/mL (<20)
[2022-06-03 18:12] LABS: Magnesium 2.1 mg/dL (1.9-2.7)
[2022-06-04 08:10] LABS: HDL Cholesterol 27.2 mg/dL
[2022-06-04] MEDS ORDERED: Aspirin EC 81 mg TAB.EC (enteric coated) PO SCH (09:00)
[2022-06-04 12:19] VITALS: BP 119/82
== END 2022-06-04 12:18 | disposition home or self-care (01) ==
LOC: ED 16:10 → EDHOLD 16:10 → SUATTDRO 19:38 → EDHOLD 06-04 05:50
PROVIDERS: ADMIT Internal Medicine; ATTEND Internal Medicine